=== PATIENT | female | born 1965 | race Caucasian/White ===

== ENCOUNTER 2023-02-04 14:54 | Outpatient (OUT) | payer OTHER, SELFPAY ==
[2023-02-04 15:21] LABS: Basophils Absolute Auto 0.1 10^3/uL (0.0-0.1); Basophils Percent Auto 1.3 % (0.2-2.0); Eosinophils Absolute Auto 0.2 10^3/uL (0.0-0.7); Eosinophils Percent Auto 2.5 % (0.9-7.0); Hematocrit 43.6 % (36.0-48.0); Immature Granulocytes Abs Auto 0.01 10^3/uL (0.00-0.03); Immature Granulocytes Pct Auto 0.2 % (0.0-0.5); Lymphocytes Absolute Auto 2.6 10^3/uL (1.2-3.8); Lymphocytes Percent Auto 40.6 % (20.5-60.0); Mean Corpuscular HGB Conc 32.1 g/dL (29.9-35.2); Mean Corpuscular Hemoglobin 29.7 pg (26.7-34.0); Mean Corpuscular Volume 92.6 fL (81.0-99.0); Mean Platelet Volume 9.4 fL (9.5-13.5); Monocytes Absolute Auto 0.4 10^3/uL (0.3-0.8); Monocytes Percent Auto 6.7 % (1.7-12.0); Neutrophils Absolute Auto 3.1 10^3/uL (1.4-6.5); Neutrophils Percent Auto 48.7 % (43.0-75.0); Platelet Count 267 10^3/uL (150-450); Red Blood Count 4.71 10^6/uL (4.20-5.40); Red Cell Distribution Width 13.3 % (11.0-15.0); White Blood Count 6.3 10^3/uL (4.0-11.0)
[2023-02-04 15:22] LABS: Erythrocyte Sedimentation Rate 51 mm/hr (<=30)
[2023-02-04 15:37] LABS: Alanine Aminotransferase 25 U/L (14-59); Albumin Level 3.8 g/dL (3.4-5.0); Alkaline Phosphatase 81 U/L (46-116); Aspartate Amino Transferase 16 U/L (15-37); Bilirubin Direct 0.1 mg/dL (0.0-0.2); Bilirubin Total 0.3 mg/dL (0.2-1.0); Estimated GFR (African America >60 (>=60); Estimated GFR (Non-African Ame >60 (>=60); Globulin 3.8 g/dL; Total Protein 7.6 g/dL (6.4-8.2)
== END 2023-02-04 14:55 | disposition home or self-care (01) ==
LOC: LAB 14:59
PROVIDERS: PCP Family Medicine; Visit Provider Internal Medicine Rheumatology
DX: M05.79 Rheumatoid arthritis with rheumatoid factor of multiple sites without organ or systems involvement (principal); Z79.899 Other long term (current) drug therapy
CPT/HCPCS: 36415; 80076; 82565; 85025; 85652

== ENCOUNTER 2023-05-27 10:06 | Outpatient (OUT) | payer OTHER, SELFPAY ==
--- NOTE | 2023-05-27 10:08 | MM_ITS ---
Patient Name: MADINA LERMA MR#: [id number] : 1965 Exam Date: 05/27/2023 Ordering Doctor: ARGELIA Ann kRADIOLOGY REPORT PROCEDURE: MM TOMOSYNTHESIS SCREENING BI COMPARISON: MG MAMM SCREEN 3D [place] CAD, 04/11/2021. MG MAMM SCREEN [place] W CAD, 01/18/2020. INDICATIONS: screening Calculator Name NCI Breast Cancer Risk Assessment Tool 5 Year Breast Cancer Risk 1.10% Lifetime Breast Cancer Risk 6.20% Personal Breast Cancer No Personal Ovarian Cancer No Treatments None Family Cancers None LOCATION: [facility] BREAST COMPOSITION: Scattered areas fibroglandular density. FINDINGS: DIAGNOSTIC CATEGORY 1--NEGATIVE. NO CHANGE FROM COMPARISON ASSESSMENT. Scattered benign-appearing calcifications are present. Scattered benign-appearing lymph nodes are present. RIGHT BREAST: No significant suspicious finding. LEFT BREAST: No significant suspicious finding. RECOMMENDATIONS: ROUTINE MAMMOGRAM AND CLINICAL EVALUATION IN 12 MONTHS. PLEASE NOTE: A NORMAL MAMMOGRAM DOES NOT EXCLUDE THE POSSIBILITY OF BREAST CANCER. A CLINICALLY SUSPICIOUS PALPABLE LUMP SHOULD BE BIOPSIED. Dictated by: Lobo Ayala MD on 05/27/2023 at 11:12 Approved by: Lobo Ayala MD on 05/27/2023 at 11:13
== END 2023-05-27 10:07 | disposition home or self-care (01) ==
LOC: MAMMO 10:06
PROVIDERS: PCP Family Medicine; Visit Provider Nurse Practitioner
DX: Z12.31 Encounter for screening mammogram for malignant neoplasm of breast (principal)
CPT/HCPCS: 77063; 77067

== ENCOUNTER 2024-05-31 07:44 | Outpatient (OUT) | payer OTHER, SELFPAY ==
--- NOTE | 2024-05-31 07:47 | MM_ITS ---
Patient Name: MADINA LERMA MR#: [id number] : 1965 Exam Date: 05/31/2024 Ordering Doctor: ARGELIA TAYLOR . RADIOLOGY REPORT PROCEDURE: MM TOMOSYNTHESIS SCREENING BI COMPARISON: MM TOMOSYNTHESIS SCREENING BI, 05/27/2023. MG MAMM SCREEN 3D [place] CAD, 04/11/2021. MG MAMM SCREEN [place] W CAD, 01/18/2020. MG MAMM [place] SCRN W CAD DIG, 11/02/2013. INDICATIONS: Screening Calculator Name NCI Breast Cancer Risk Assessment Tool 5 Year Breast Cancer Risk 1.20% Lifetime Breast Cancer Risk 6.00% Personal Breast Cancer No Personal Ovarian Cancer No Treatments None Family Cancers None LOCATION: [facility] BREAST COMPOSITION: There are scattered areas of fibroglandular density. FINDINGS: DIAGNOSTIC CATEGORY 0--INCOMPLETE: NEED ADDITIONAL IMAGING EVALUATION. Suspicious grouping of microcalcifications are seen involving the lower-inner quadrant of the right breast, middle depth. LEFT BREAST: No significant suspicious finding. RECOMMENDATIONS: ADDITIONAL MAMMOGRAPHIC VIEWS REQUIRED: RIGHT BREAST - magnification views. True lateral view. PLEASE NOTE: A NORMAL MAMMOGRAM DOES NOT EXCLUDE THE POSSIBILITY OF BREAST CANCER. A CLINICALLY SUSPICIOUS PALPABLE LUMP SHOULD BE BIOPSIED. Dictated by: Simone Chavez DO on 06/01/2024 at 15:36 Approved by: Simone Chavez DO on 06/01/2024 at 15:42
--- OUTSIDE RECORDS SUMMARY | 2024-05-31 07:49 | XMS_ITS | CCD ---
Author Organization [facility] Care Team Providers Care Nutrition Worker Name Role Phone MARKEL, DR FALLON Consulting Unavailable LONGORIA ., DR TONIA Velasco Primary Care Unavailable MARKEL, DR FALLON Attending Unavailable MARKEL, DR FALLON Admitting Unavailable NILL ., DR CABRERA Consulting Unavailable LONGORIA ., DR TONIA Velasco Primary Care Unavailable NILL ., DR CABRERA Attending Unavailable NILL ., DR CABRERA Admitting Unavailable ACRDONA ALISSA Consulting Unavailable GRILLIS ., DR DEBORAH Velasco Consulting Unavaila ble GRILLIS ., DR DEBORAH Velasco Attending Unavaila ble GRILLIS ., DR DEBORAH Velasco Admitting Unavaila ble LONGORIA ., DR TONIA Velasco Primary Care Unavailable GRECHNY ., TERI SANCHEZ Consulting Unavailfrank e LAY DAWKINS Consulting Unavailable SHAIKH Bubba JANG Consulting Unavailable ARTUR SYKES Consulting Unavailable NILL ., DR CABRERA Consulting Unavailable LONGORIA ., DR TONIA Velasco Primary Care Unavailable NILL ., DR CABRERA Attending Unavailable NILL ., DR CABRERA Admitting Unavailable MATTHEWAMAURI Consulting Unavailable ZORA II, LAY Consulting Unavailable MARKEL, DR FALLON Consulting Unavailable LONGORIA ., DR TONIA Velasco Primary Care Unavailable CATALINAADARobinson, DR FALLON Attending Unavailable CATALINAADARobinson, DR FALLON Admitting Unavailable GRILLIS ., DR DEBORAH Velasco Consulting Unavaila ble LONGORIA ., DR TONIA Velasco Primary Care Unavailable GRILLIS ., DR DEBORAH Velasco Attending Unavaila ble GRILLIS ., DR DEBORAH Velasco Admitting Unavaila LACHELLE Marcano Consulting Unavailable LONGORIA ., DR TONIA Velasco Consulting Unavailable LONOGRIA ., DR TONIA Velasco Primary Care Unavailable LONGORIA ., DR TONIA Velasco Attending Unavailable LONGORIA ., DR TONIA Velasco Admitting Unavailable LONGORIA ., DR TONIA Velasco Consulting Unavailable LONGORIA ., DR TONIA Velasco Primary Care Unavailable LONGORIA ., DR TONIA Velasco Attending Unavailable LONGORIA ., DR TONIA Velasco Admitting Unavailable LONGORIA ., DR TONIA Velasco Consulting Unavailable LONGORIA ., DR TONIA Velasco Primary Care Unavailable LONGORIA ., DR TONIA Velasco Attending Unavailable LONGORIA ., DR TONIA Velasco Admitting Unavailable HALADAY, DR FALLON Consulting Unavailable LONGORIA ., DR TONIA Velasco Primary Care Unavailable HALADAY, DR FALLON Attending Unavailable HALADAY, DR FALLON Admitting Unavailable Dakota Jeffery Primary Care Physician Rona Ocampo Primary Care Physician [phone] Damaris, Rona Perez Attending Unavailable Damaris, Rona L Admitting Unavailable Damaris, Rona L Attending Unavailable Damaris, Rona L Attending Unavailable Damaris, Rona L Attending Unavailable Damaris, Rona L Admitting Unavailable Damaris, Rona L Attending Unavailable Damaris, Rona L Admitting Unavailable Damaris, Rona L Attending Unavailable HALADAY, LEEANNE Parra Attending Unavailable HALADAY, LEEANNE Parra Admitting Unavailable HALADAY, LEEANNE Parra Attending Unavailable HALADAY, LEEANNE Parra Admitting Unavailable Allergies Allergy Classification Reported Allergen(s) Allergy Type Date of Onset Reaction(s) Facility (3 sources) No Known Medication Allergies; Translations: [No Known Medication Allergies] Propensity to adverse reactions (disorder) [facility] Repository Medications Current Medications Medication Drug Class(es) Dates Sig (Normalized) Sig (Original) calcium carbonate 400 mg chewable tablet (2 sources) Start: 3 take 1 tablet by mouth twice daily calcium carbonate 400 mg oral tablet, chewable = 1 tab(s), Chewed, BID, # 60 tab(s), Refills(s) 0 Start Date: 06/23/22 Status: Ordered folic acid 1 mg oral tablet (5 sources) Start: 2 take 1 tablet by mouth once daily folic acid 1 mg Tab 1 mg = 1 tab(s), Oral, Daily, Refills(s) 0 Start Date: 01/30/22 Status: Ordered hydroxychloroquine sulfate 200 mg oral tablet (5 sources) Antimalarial, Antirheumatic Agent Start: 2 take 1 tablet by mouth once daily hydroxychloroquine 200 mg Tab 200 mg = 1 tab(s), Oral, Daily, Refills(s) 0 Start Date: 01/30/22 Status: Ordered methotrexate 2.5 mg oral tablet (8 sources) Folate Analog Metabolic Inhibitor Start: methotrexate 2.5 mg Tab 2.5 mg = 1 tab(s), Oral, q7day, # 16 tab(s), Refills(s) 2, [id number], cm, 02/28/24 10:21:00 EST, Height/Length Dosing, 104.2, kg, 02/28/24 10:21:00 EST, Weight Dosing Start Date: 02/28/24 Status: Ordered Start: 01-30-2022 methotrexate 2 .5 mg Tab 15 mg = 6 tab(s), Oral, qWeek, Refills(s) 0 Start Date: 01/30/22 Status: Ordered metoprolol tartrate 37.5 mg oral tablet (4 sources) beta-Adrenergic Sally Start: 04-04-2024 take 1 tablet by mouth twice daily metoprolol tartrate 37.5 mg oral tablet 37.5 mg = 1 tab(s), Oral, BID, # 180 tab(s), Refills(s) 3, [id number] 170, cm, 02/28/24 10:21:00 EST, Height/Length Dosing, 104.2, kg, 02/28/24 10:21:00 EST, Weight Dosing Start Date: 04/04/24 Status: Ordered Start: 02-28-2024 take 1 tablet by lionel th twice daily metoprolol tartrate 37.5 mg oral tablet = 1 tab(s), Oral, BID, Refills(s) 0 Start Date: 02/28/24 Status: Ordered Start: 01-08-2023 take 1 tablet by lionel th twice daily Metoprolol tartrate 25 mg Tab 25 mg = 1 tab(s), Oral, BID, # 60 tab(s), Refills(s) 1, Pharmacy: [facility]/pharmacy #[id number], 170, cm, 01/08/23 9:23:00 EDT, Height/Length Dosing, 100.6, kg, 01/08/23 9:23:00 EDT, Weight Dosing Start Date: 01/08/23 Status: Ordered Multivitamin preparation (5 sources) Start: 06-23-2022 multivitamin R efill(s) 0 Start Date: 06/23/22 Status: Ordered predniSONE 5 mg oral tablet (1 source) Start: 02-28-2024 End: 03-13-2024 take 1 tablet by mouth once daily predniSONE 5 mg Tab 5 mg = 1 tab(s), Oral, Daily, X 14 day(s), # 14 tab(s), Refills(s) 0, Pharmacy: [facility]/pharmacy #[id number], 170, cm, 02/28/24 10:21:00 EST, Height/Length Dosing, 104.2, kg, 02/28/24 10:21:00 EST, Weight Dosing Start Date: 02/28/24 Stop Date: 03/13/24 Status: Ordered Problems Active Problems Problem Classification Problem Date Documented Date Episodic/Chronic Administrative/social admission (1 source) Dietary counseling and surveillance; Translations: [DIETARY COUNSELING AND SURVEILLANCE] Onset: 08-09-2022 Episodic Deficiency and other anemia (5 sources) Anemia 01-30-2022 Episodic Disorders of lipid metabolism (3 sources) Hyperlipidemia 02-28-2024 Chronic Essential hypertension (11 sources) Essential (primary) hypertension; Translations: [Essential hypertension] Onset: 04-02-2022 Chronic Immunizations and screening for infectious disease (1 source) Encounter for screening for other viral diseases; Translations: [ENC SCREENING FOR OTH VIRAL DZ] Onset: 07-15-2022 Episodic Inflammation; infection of eye (except that caused by tuberculosis or sexually transmitteddisease) (3 sources) Conjunctivitis of left eye 03-04-2023 Episodic Malaise and fatigue (4 sources) Fatigue 01-08-2023 Episodic Other eye disorders (3 sources) Bilateral red eyes 03-16-2023 Episodic Other female genital disorders (5 sources) Polyp of cervix 01-30-2022 Episodic Other infections; including parasitic (5 sources) History of bacterial infection 01-30-2022 Episodic Other nutritional; endocrine; and metabolic disorders (8 sources) Body mass index 30+ - obesity 02-04-2022 Chronic Other nutritional; endocrine; and metabolic disorders (2 sources) Obesity; Translations: [Other obesity due to excess calories] Onset: 02-28-2024 Chronic Other nutritional; endocrine; and metabolic disorders (1 source) Obese class II; Translations: [Body mass index (BMI) 36.0-36.9, adult] Onset: 02-28-2024 Chronic Rheumatoid arthritis and related disease (14 sources) Rheumatoid arthritis with rheumatoid factor of multiple sites without organ or systems involvement; Translations: [Rheumatoid arthritis, unspecified] Onset: 09-11-2021 Chronic Unclassified (1 source) PERSONAL HISTORY OF COVID-19; Translations: [PERSONAL HISTORY OF COVID-19] Onset: 04-02-2022 Unclassified (3 sources) CONTACT W/AND (SUSP) EXPOS COVID-19; Translations: [CONTACT W/AND (SUSP) EXPOS COVID-19] Onset: 11-26-2021 Unclassified (15 sources) Patient encounter status 02-04-2022 Unclassified (2 sources) Cancer cervix screening status 04-12-2024 Viral infection (1 source) COVID-19; Translations: [COVID-19] Onset: 11-26-2021 Past or Other Problems Problem Classification Problem Date Documented Da te Episodic/Chronic Abdominal pain (4 sources) Right lower quadrant pain; Translations: [RIGHT LOWER QUADRANT PAIN] Onset: 09-17-2021 Episodic Appendicitis and other appendiceal conditions (1 source) Acute appendicitis with perforation and localized peritonitis, without abscess; Translations: [AC APPEND W/PERF LOC PERIT W/O ABSC] Onset: 09-11-2021 Episodic Other aftercare (1 source) 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; Translations: [OTH HOME CARE NURSE CURRENT DRUG THERAPY] Onset: 04-02-2022 Episodic Other gastrointestinal disorders (4 sources) Diarrhea, unspecified; Translations: [DIARRHEA UNSPECIFIED] Onset: 10-24-2021 Episodic Other infections; including parasitic (1 source) Unspecified infectious disease; Translations: [UNSPECIFIED INFECTIOUS DISEASE] Onset: 09-19-2021 Episodic Other screening for suspected conditions (not mental disorders or infectious disease) (4 sources) Encounter for screening for malignant neoplasm of colon; Translations: [ENC SCREEN MALIG NEOPLASM COLON] Onset: 04-01-2022 Episodic Septicemia (except in labor) (1 source) Sepsis, unspecified organism; Translations: [SEPSIS UNSPECIFIED ORGANISM] Onset: 09-11-2021 Episodic Unclassified (1 source) CONTACT W/AND (SUSP) EXPOS COVID-19; Translations: [CONTACT W/AND (SUSP) EXPOS COVID-19] Onset: 11-25-2021 Results Test Name Value Interpretation Reference Range Facility CBC w/ Auto Diffon 01-22-202 5 Basophils/100 WBC (Bld) 1.3 % Normal 0.0-2.0 [facility] Comment on above: Performed By: #### 2 [id number] #### [facility] [address] [place] [address] Basophils/Leukocytes Auto (Bld) [Pure # fraction] 0.1 E9/L Normal 0.0-0.2 [facility] Comment on above: Performed By: #### 2 [id number] #### [facility] [address] [place] [address] Eosinophils (Bld) [#/Vol] 0.2 E9/L Normal 0.0-0.5 [facility] Comment on above: Performed By: #### 2 [id number] #### [facility] [address] [place] [address] Eosinophils/100 WBC (Bld) 3.4 % Normal 0.0-8.0 [facility] Comment on above: Performed By: #### 2 [id number] #### [facility] [address] [place] [address] Erythrocyte distribution width (RBC) [Ratio] 14.9 % High 10.9-14.2 [facility] Comment on above: Performed By: #### 2 [id number] #### [facility] [address] [place] [address] Hematocrit (Bld) [Volume fraction] 41.3 % Normal 34.0-46.0 [facility] Comment on above: Performed By: #### 2 [id number] #### [facility] [address] [place] [address] Hemoglobin (Bld) [Mass/Vol] 13.6 g/dL Normal 12.0-16.0 [facility] Comment on above: Performed By: #### 2 [id number] #### [facility] [address] [place] [address] Lymphocytes (Bld) [#/Vol] 2.5 E9/L Normal 1.0-4.0 [facility] Comment on above: Performed By: #### 2 [id number] #### [facility] [address] [place] [address] Lymphocytes/100 WBC (Bld) 38.1 % Normal 14.0-50.0 [facility] Comment on above: Performed By: #### 2 [id number] #### [facility] [address] [place] [address] MCH (RBC) [Entitic mass] 28.3 pg Normal 27.0-34.0 [facility] Comment on above: Performed By: #### 2 [id number] #### [facility] [address] [place] [address] MCHC (RBC) [Mass/Vol] 32.9 g/dL Normal 31.4-36.0 [facility] Comment on above: Performed By: #### 2 [id number] #### [facility] [address] [place] [address] MCV (RBC) [Entitic vol] 85.9 fL Normal 80.0-100.0 [facility] Comment on above: Performed By: #### 2 [id number] #### [facility] [address] [place] [address] Monocytes (Bld) [#/Vol] 0.4 E9/L Normal 0.2-1.0 [facility] Comment on above: Performed By: #### 2 [id number] #### [facility] [address] [place] [address] Neutrophils (Bld) [#/Vol] 3.3 E9/L Normal 2.0-7.5 [facility] Comment on above: Performed By: #### 2 [id number] #### [facility] [address] [place] [address] Neutrophils/100 WBC (Bld) 50.6 % Normal 36.0-75.0 [facility] Comment on above: Performed By: #### 2 [id number] #### [facility] [address] [place] [address] Platelet mean volume (Bld) [Entitic vol] 8.2 fL Normal 6.4-10.8 [facility] Comment on above: Performed By: #### 2 [id number] #### [facility] [address] [place] [address] Platelets (Bld) [#/Vol] 354.0 E9/L Normal 150.0-500.0 [facility] Comment on above: Performed By: #### 2 [id number] #### [facility] [address] [place] [address] RBC (Bld) [#/Vol] 4.8 E12/L Normal 4.3-5.9 [facility] Comment on above: Performed By: #### 2 [id number] #### [facility] [address] [place] [address] WBC corrected for nucl RBC Auto (Bld) [#/Vol] 6.6 E9/L Normal 4.0-11.0 [facility] Comment on above: Performed By: #### 2 [id number] #### [facility] [address] [place] [address] CHEMISTRYOrdered By: SYSTEM SYSTEM on 04-19-2024 Albumin [Mass/Vol] 3.8 g/dL Normal 3.3 - 5.0 gm/dL [facility] Albumin/Globulin [Mass ratio] 1.1 {ratio} Normal 1.1 - 2.2 [facility] ALP [Catalytic activity/Vol] 78 [iU]/d Normal 21 - 98 Int._Unit/L [facility] ALT No additional P-5'-P [Catalytic activity/Vol] 13 [iU]/d Normal 6 - 46 Int._Unit/L [facility] AST [Catalytic activity/Vol] 18 [iU]/d Normal 5 - 43 Int._Unit/L [facility] Bilirubin [Mass/Vol] 0.5 mg/dL Normal 0.0 - 1 .1 mg/dL [facility] Bilirubin.direct [Mass/Vol] 0.1 mg/dL Normal 0.0 - 0.4 mg/dL [facility] Bilirubin.indirect [Mass or moles/Vol] 0.4 mg/dL Normal 0.1 - 0.9 mg/dL [facility] Creatinine [Mass/Vol] 0.7 mg/dL Normal 0.5 - 1.3 mg/dL [facility] eGFR 99 mL/min/1.73 m2 Normal >=59mL/min /1 .73 m2 [facility] Globulin (S) [Mass/Vol] 3.5 g/dL Normal 1.4 - 4.0 gm/dL [facility] Protein [Mass/Vol] 7.3 g/dL Normal 6.0 - 7.8 gm/dL [facility] Creatinineon 04-19-2024 Creatinine [Mass/Vol] 0.7 mg/dL Normal 0.5-1.3 [facility] Comment on above: Performed By: #### 2 [id number] #### [facility] [address] [place] [address] Extra Julian 04-19-2024 WB Tube Collected Yes Invalid Interpretation Code [facility] Comment on above: Performed By: #### 1 [id number] #### [facility] [address] [place] [address] HEMATOLOGYOrdered By: SYSTEM SYSTEM on 04-19-2024 Basophils/100 WBC (Bld) 1.3 % Normal 0.0 - 2.0 % [facility]e Basophils/Leukocytes Auto (Bld) [Pure # fraction] 0.1 E9/L Normal 0.0 - 0.2 E9/L [facility] Eosinophils (Bld) [#/Vol] 0.2 E9/L Normal 0.0 - 0.5 E9/L [facility] Eosinophils/100 WBC (Bld) 3.4 % Normal 0.0 - 8.0 % [facility] Erythrocyte distribution width (RBC) [Ratio] 14.9 % High 10.9 - 14.2 % [facility] Hematocrit (Bld) [Volume fraction] 41.3 % Normal 34.0 - 46.0 % [facility] Hemoglobin (Bld) [Mass/Vol] 13.6 g/dL Normal 12.0 - 16.0 gm/dL [facility] Lymphocytes (Bld) [#/Vol] 2.5 E9/L Normal 1.0 - 4.0 E9/L [facility] Lymphocytes/100 WBC (Bld) 38.1 % Normal 14.0 - 50.0 % [facility] MCH (RBC) [Entitic mass] 28.3 pg Normal 27.0 - 34.0 pg [facility] MCHC (RBC) [Mass/Vol] 32.9 g/dL Normal 31.4 - 36.0 gm/dL [facility] MCV (RBC) [Entitic vol] 85.9 fL Normal 80.0 - 100.0 fL [facility] Monocytes (Bld) [#/Vol] 0.4 E9/L Normal 0.2 - 1.0 E9/L [facility] Monocytes/100 WBC (Bld) 6.6 % Normal 4.0 - 14.0 % [facility] Neutrophils (Bld) [#/Vol] 3.3 E9/L Normal 2.0 - 7.5 E9/L [facility] Neutrophils/100 WBC (Bld) 50.6 % Normal 36.0 - 75.0 % [facility] Platelet mean volume (Bld) [Entitic vol] 8.2 fL Normal 6.4 - 10.8 fL [facility] Platelets (Bld) [#/Vol] 354.0 E9/L Normal 150.0 - 500.0 E9/L [facility] RBC (Bld) [#/Vol] 4.8 E12/L Normal 4.3 - 5.9 E12/L [facility] WBC corrected for nucl RBC Auto (Bld) [#/Vol] 6.6 E9/L Normal 4.0 - 11.0 E9/L [facility] HEMATOLOGYOrdered By: Dami Franklin on 04-19-2024 ESR (Bld) [Velocity] 25 mm/h Normal 0 - 34 mm/hr [facility] HemeAutoSS Hep Func Panelon 04-19-2024 Albumin [Mass/Vol] 3.8 g/dL Normal 3.3-5.0 [facility] Comment on above: Performed By: #### 2 [id number] #### [facility] [address] [place] [address] Albumin/Globulin (S) [Mass conc ratio] 1.1 Normal 1.1-2.2 [facility] Comment on above: Performed By: #### 2 [id number] #### [facility] [address] [place] [address] ALP [Catalytic activity/Vol] 78 Int._Unit/L Normal 21-98 [facility] Comment on above: Performed By: #### 2 [id number] #### [facility] [address] [place] [address] ALT No additional P-5'-P [Catalytic activity/Vol] 13 Int._Unit/L Normal 6-46 [facility] Comment on above: Performed By: #### 2 [id number] #### [facility] [address] [place] [address] AST [Catalytic activity/Vol] 18 Int._Unit/L Normal 5-43 [facility] Comment on above: Performed By: #### 2 [id number] #### [facility] [address] [place] [address] Bilirubin [Mass/Vol] 0.5 mg/dL Normal 0.0-1.1 [facility] Comment on above: Performed By: #### 2 [id number] #### [facility] [address] [place] [address] Bilirubin.direct [Mass/Vol] 0.1 mg/dL Normal 0.0-0.4 [facility] Comment on above: Performed By: #### 2 [id number] #### [facility] [address] [place] [address] Bilirubin.indirect [Mass or moles/Vol] 0.4 mg/dL Normal 0.1-0.9 [facility] Comment on above: Performed By: #### 2 [id number] #### [facility] [address] [place] [address] Globulin (S) [Mass/Vol] 3.5 g/dL Normal 1.4-4.0 [facility] Comment on above: Performed By: #### 2 [id number] #### [facility] [address] [place] [address] Protein [Mass/Vol] 7.3 g/dL Normal 6.0-7.8 [facility] Comment on above: Performed By: #### 2 [id number] #### [facility] [address] [place] [address] Sed Rate Automatedon 025 ESR (Bld) [Velocity] 25 mm/h Normal 0-34 [facility] Comment on above: Performed By: #### 1 [id number] #### [facility] [address] [place] [address] eGFRon 04-19-2024 eGFR 99 mL/min/1.73 m2 Normal >=59 [facility] Comment on above: Performed By: #### 1 [id number] #### [facility] [address] [place] [address] PAP [id number] 04-18-2024 Cytology report Cyto stain Doc (Cvx/Vag) Note Invalid Interpretation Code [facility] Comment on above: Result Comment: TEST S RESULT FLAG UNITS REF RANGE LAB Clinician Provided Cytology Information Source.............Endocervix No. of containers..01 ThinPrep Vial DIAGNOSIS: 01 NEGATIVE FOR INTRAEPITHELIAL LESION OR MALIGNANCY. Specimen adequacy: 01 Satisfactory for evaluation. Endocervical and/or squamous metaplastic cells (endocervical component) are present. Performed by: Meg Ghosh Beef Specialist (ASCP) . 01 Note: Note 01 The Pap smear is a screening test designed to aid in the detection of premalignant and malignant conditions of the uterine cervix. It is not a diagnostic procedure and should not be used as the sole means of detecting cervical cancer. Both false-positive and false-negative reports do occur. Test Methodology: Note 01 This liquid based ThinPrep(R) pap test was screened with the use of an image guided system. HPV Genotype Reflex Note 01 Criteria not met, HPV Genotype not performed. FLAG LEGEND: L-Low Normal,H-High Normal,LL-Alert Low,HH-Alert High <-Panic Low,>-Panic High,A-Abnormal,AA-Critical Abnormal Performed at: [address] [id number] Brandy Gardner MD, Performed By: #### 1 [id number] #### [facility] [address] [place] [address] HPV 16+18+31+33+35+39+45+ 51+52+56+58+59+66+68 DNA Probe+sig amp Ql (Cvx) Negative Invalid Interpretation Code Negative [facility] Comment on above: Result Comment: This nucleic acid amplification test detects fourteen high-risk HPV types (16,18,31,33,35,39,45,51,52,56,58,59,66,68) without differentiation. Performed at: [address] [id number] MD Jj Nava Performed at: [address] [id number] MD Jj Nava Performed By: #### 1 [id number] #### [facility] [address] [place] [address] Ambulatory Visit Summaryon 0 04-12-2024 Ambulatory Visit Summary Ambulatory Visit Summary CYN LERMA :1965 Visit Date:04/12/2024 Ambulatory Visit Instructions Your Care Team Attending Physician - Rona Winkler Primary Care Physician - Rona Winkler This Is Your Medications List folic acid (folic acid 1 mg Tab) hydroxychloroquine (hydroxychloroquine 200 mg Tab) methotrexate (methotrexate 2.5 mg Tab) methotrexate (methotrexate 2.5 mg Tab) metoprolol (metoprolol tartrate 37.5 mg oral tablet) multivitamin Procedures Performed Colonoscopy (02/04/2022), Appendectomy, section, Drainage. Discharge Vitals Heart Rate (Peripheral) 78 Respiratory Rate 16 Blood Pressure 138/86 Height 170 cm Height 67 in Weight 104.75 kg Weight 230.934 lb BMI 36.25 Medications What How Much When Instructions Unchanged folic acid (folic acid 1 mg Tab) 1 Tablets By Mouth Every day Unchanged hydroxychloroquine (hydroxychloroquine 200 mg Tab) 1 Tablets By Mouth Every day Unchanged methotrexate (methotrexate 2.5 mg Tab) 6 Tablets By Mouth Every week Unchanged methotrexate (methotrexate 2.5 mg Tab) 1 Tablets By Mouth Every 7 days Unchanged metoprolol (metoprolol tartrate 37.5 mg oral tablet) 1 Tablets By Mouth 2 times a day Unchanged multivitamin Allergies No Known Allergies Problems Ongoing - Any problem that you are currently receiving treatment for. Anemia Annual wellness visit BMI 32.0-32.9,adult BMI 36.0-36.9,adult Cervical polyp Fatigue History of Clostridium difficile infection HTN (hypertension) Hyperlipemia Hypertension Left conjunctivitis Redness of both eyes Rheumatoid arthritis Screening for hyperlipidemia Screening for malignant neoplasm of colon Patient Survey You may receive a survey via text or e-mail asking about your office visit. Please share your experience with us by completing your survey. We appreciate your feedback and thank you for choosing us for your care. Lex Templeton [facility] Family Medicine Office/Clini c Noteon 04-12-2024 Family Medicine Office/Clinic Note Family Medicine Office/Clinic Note HPI Staff Cyn is a 59 year old female presenting for well woman Woman check up: Last pap: 2 years Last Bob: 03/2023 normal Results of lap pap: normal Where was it done: [facility] hx: # of pregnancies.3.. abortions... live births.3.. living children... menstrual cycle (normal,heavy,ect): n/a History of STD: no Do you want tested for STD today: no Vaginal discharge, odor, itching: no Self breast exam at home? yes Hx of breast, cervical or uterine cancer in the family: no History of Present Illness pt presents today for well woman visit Review of Systems PHQ Score Initial Depression Screen Score: 0 SCORE Physical Exam Vitals & Measurements HR: 78(Peripheral) RR: 16 BP: 138/86 SpO2: 95% HT: 67 in HT: 170 cm WT: 104.75 kg WT: 230.934 lb BMI: 36.25 General: Well developed, well nourished, in no acute distress Neck: Neck supple. No masses or palpable cervical nodes. Trachea midline. Thyroid without nodules, masses, tenderness, or enlargement Breast: No mass, nodule, discharge, or erythema bilaterally, and no axillary lymphadenopathy Lungs: Normal respiratory effort and clear to auscultation Cardio: Regular rate and rhythm, normal S1 and S2, no murmur, no rub Abdomen: Soft, non-distended, non-tender, normal bowel sounds x4 Gyno: normal external genitalia. Urethra no discharge. Vagina normal without lesions, no vaginal discharge. Cervix normal, without lesions. Uterus normal. No adnexal masses. Pap obtained cervical polyp noted during exam Neurologic: Grossly normal Skin: [place], moist, no tenting Lymph Nodes: No cervical adenopathy, nodes normal Mental Status: Alert and oriented x3. Normal mood and affect Assessment/Plan 1. Well woman exam (Z01.419: Encounter for gynecological examination (general) (routine) without abnormal findings) well woman visit. pap obtained. BSE discussed. mammogram ordered for end april. denies needs at this time. labs reviewed. RTC as needed Ordered: Est Preventative 40 to 64 years 83855 PAP 170783 w/ HPV and Genotype rflx 2. Cervical polyp (N84.1: Polyp of cervix uteri) polyp noted on exam Ordered: Est Preventative 40 to 64 years 74473 PAP 053144 w/ HPV and Genotype rflx 3. Cervical cancer screening (Z12.4: Encounter for screening for malignant neoplasm of cervix) pap obtained. Ordered: Est Preventative 40 to 64 years 03820 PAP [id number] w/ HPV and Genotype rflx 4. Breast cancer screening (Z12.39: Encounter for other screening for malignant neoplasm of breast) mammogram order provided Ordered: Est Preventative 40 to 64 years [address]12 PAP 860962 w/ HPV and Genotype rflx 5. BMI 36.0-36.9,adult (Z68.36: Body mass index [BMI] 36.0-36.9, adult) BMI education given Ordered: Est Preventative 40 to 64 years 87086 PAP w/ HPV and Genotype rflx Follow-up No qualifying data available Problem List/Past Medical History Ongoing Anemia Annual wellness visit BMI 32.0-32.9,adult BMI 36.0-36.9,adult Breast cancer screening Cervical cancer screening Cervical polyp Fatigue History of Clostridium difficile infection HTN (hypertension) Hyperlipemia Hypertension Left conjunctivitis Redness of both eyes Rheumatoid arthritis Screening for hyperlipidemia Screening for malignant neoplasm of colon Well woman exam Historical No qualifying data Procedure/Surgical History Colonoscopy (02/04/2022), Appendectomy, section, Drainage. Medications folic acid 1 mg Tab, 1 mg= 1 tab(s), Oral, Daily, Not taking: pt Rx has to get seen my the doctor refills hydroxychloroquine 200 mg Tab, 200 mg= 1 tab(s), Oral, Daily, Not taking: pt Rx has to get seen my the doctor refills methotrexate 2.5 mg Tab, 15 mg= 6 tab(s), Oral, qWeek, Not taking: pt Rx has to get seen my the doctor refills methotrexate 2.5 mg Tab, 2.5 mg= 1 tab(s), Oral, q7day, 2 refills, Not taking: pt Rx has to get seen my the doctor refills metoprolol tartrate 37.5 mg oral tablet, 37.5 mg= 1 tab(s), Oral, BID, 3 refills multivitamin Allergies No Known Allergies Social History Alcohol - Low Risk, 06/23/2022 Current. 1-2 times per year., 04/12/2024 Substance Abuse - Denies Substance Abuse, 02/04/2022 Never., 02/27/2024 Tobacco - Denies Tobacco Use, 06/23/2022 Never (less than 100 in lifetime) Tobacco Use:. Never Smokeless Tobacco Use:. Household tobacco concerns: No. Yes, 02/28/2024 Family History Family history is negative Immunizations Vaccine Date Status Comments influenza virus vaccine, inactivated - Not Given Patient Refuses SARS-CoV-2 (COVID-19) mRNA BNT-162b2 vax 04/25/2021 Recorded SARS-CoV-2 (COVID-19) mRNA BNT-162b2 vax 04/02/2021 Recorded Normal [facility] Comment on above: Result Comment: Elec tronically Signed By: Rona Winkler\.br\Date and Time Signed: 04/12/24 15:14 EST PAP [id number] 04-12-2024 Gynecological Body Site ENDOCERVIX Normal [facility] Comment on above: Performed By: #### 1 [id number] #### [facility] [address] [place] [address] Ambulatory Visit Summaryon 1 04-30-2023 Ambulatory Visit Summary Ambulatory Visit Summary CYN LERMA :1965 Visit Date:02/28/2024 Ambulatory Visit Instructions Your Diagnosis Annual wellness visit Hypertension Hyperlipemia Nonsmoker Class 1 obesity due to excess calories in adult, Other obesity due to excess calories BMI 36.0-36.9,adult Your Care Team Attending Physician - Rona Winkler Primary Care Physician - Rona Winkler This Is Your Medications List folic acid (folic acid 1 mg Tab) hydroxychloroquine (hydroxychloroquine 200 mg Tab) methotrexate (methotrexate 2.5 mg Tab) methotrexate (methotrexate 2.5 mg Tab) metoprolol (metoprolol tartrate 37.5 mg oral tablet) multivitamin predniSONE (predniSONE 5 mg Tab) Procedures Performed Colonoscopy (02/04/2022), Appendectomy, section, Drainage. Discharge Vitals Temperature (Tympanic) 36.8 ???C Heart Rate (Peripheral) 61 Respiratory Rate 18 Blood Pressure 152/90 Height 170 cm Height 67 in Weight 104.2 kg Weight 229.721 lb BMI 36.06 What to do next Scheduled Follow-Up Appointments Wednesday 2:40 PM EST With: Rona Winkler Where: [place] [id number]- Medications What How Much When Instructions Unchanged folic acid (folic acid 1 mg Tab) 1 Tablets By Mouth Every day Unchanged hydroxychloroquine (hydroxychloroquine 200 mg Tab) 1 Tablets By Mouth Every day Unchanged methotrexate (methotrexate 2.5 mg Tab) 6 Tablets By Mouth Every week Unchanged methotrexate (methotrexate 2.5 mg Tab) 1 Tablets By Mouth Every 7 days Pickup at [facility]/pharmacy #[id number] Unchanged metoprolol (metoprolol tartrate 37.5 mg oral tablet) 1 Tablets By Mouth 2 times a day Unchanged multivitamin Unchanged predniSONE (predniSONE 5 mg Tab) 1 Tablets By Mouth Every day Duration: 14 Days Pickup at [facility]/pharmacy #[id number] Pharmacy Information [facility]/pharmacy #[id number]: [address], [place] [id number] [phone] Allergies No Known Allergies Problems Ongoing - Any problem that you are currently receiving treatment for. Anemia Annual wellness visit BMI 32.0-32.9,adult BMI 36.0-36.9,adult Cervical polyp Fatigue History of Clostridium difficile infection HTN (hypertension) Hyperlipemia Hypertension Left conjunctivitis Redness of both eyes Rheumatoid arthritis Screening for hyperlipidemia Screening for malignant neoplasm of colon Patient Survey You may receive a survey via text or e-mail asking about your office visit. Please share your experience with us by completing your survey. We appreciate your feedback and thank you for choosing us for your care. Normal [facility] CBC w/ Auto Diffon 4 Basophils/100 WBC (Bld) 1.2 % Normal 0.0-2.0 [facility] Comment on above: Performed By: #### 2 [id number] #### [facility] [address] [place] [address] Basophils/Leukocytes Auto (Bld) [Pure # fraction] 0.1 E9/L Normal 0.0-0.2 [facility] Comment on above: Performed By: #### 2 [id number] #### [facility] [address] [place] [address] Eosinophils (Bld) [#/Vol] 0.1 E9/L Normal 0.0-0.5 [facility] Comment on above: Performed By: #### 2 [id number] #### [facility] [address] [place] [address] Eosinophils/100 WBC (Bld) 1.2 % Normal 0.0-8.0 [facility] Comment on above: Performed By: #### 2 [id number] #### [facility] [address] [place] [address] Erythrocyte distribution width (RBC) [Ratio] 15.1 % High 10.9-14.2 [facility] Comment on above: Performed By: #### 2 [id number] #### [facility] [address] [place] [address] Hematocrit (Bld) [Volume fraction] 44.7 % Normal 34.0-46.0 [facility] Comment on above: Performed By: #### 2 [id number] #### [facility] [address] [place] [address] Hemoglobin (Bld) [Mass/Vol] 15.0 g/dL Normal 12.0-16.0 [facility] Comment on above: Performed By: #### 2 [id number] #### [facility] [address] [place] [address] Lymphocytes (Bld) [#/Vol] 4.0 E9/L Normal 1.0-4.0 [facility] Comment on above: Performed By: #### 2 [id number] #### [facility] [address] [place] [address] Lymphocytes/100 WBC (Bld) 37.1 % Normal 14.0-50.0 [facility] Comment on above: Performed By: #### 2 [id number] #### [facility] [address] [place] [address] MCH (RBC) [Entitic mass] 29.3 pg Normal 27.0-34.0 [facility] Comment on above: Performed By: #### 2 [id number] #### [facility] [address] [place] [address] MCHC (RBC) [Mass/Vol] 33.5 g/dL Normal 31.4-36.0 [facility] Comment on above: Performed By: #### 2 [id number] #### [facility] [address] [place] [address] MCV (RBC) [Entitic vol] 87.3 fL Normal 80.0-100.0 [facility] Comment on above: Performed By: #### 2 [id number] #### [facility] [address] [place] [address] Monocytes (Bld) [#/Vol] 0.7 E9/L Normal 0.2-1.0 [facility] Comment on above: Performed By: #### 2 [id number] #### [facility] [address] [place] [address] Neutrophils (Bld) [#/Vol] 5.8 E9/L Normal 2.0-7.5 [facility] Comment on above: Performed By: #### 2 [id number] #### [facility] [address] [place] [address] Neutrophils/100 WBC (Bld) 54.1 % Normal 36.0-75.0 [facility] Comment on above: Performed By: #### 2 [id number] #### [facility] [address] [place] [address] Platelet mean volume (Bld) [Entitic vol] 8.5 fL Normal 6.4-10.8 [facility] Comment on above: Performed By: #### 2 [id number] #### [facility] [address] [place] [address] Platelets (Bld) [#/Vol] 289.0 E9/L Normal 150.0-500.0 [facility] Comment on above: Performed By: #### 2 [id number] #### [facility] [address] [place] [address] RBC (Bld) [#/Vol] 5.1 E12/L Normal 4.3-5.9 [facility] Comment on above: Performed By: #### 2 [id number] #### [facility] [address] [place] [address] WBC corrected for nucl RBC Auto (Bld) [#/Vol] 10.8 E9/L Normal 4.0-11.0 [facility] Comment on above: Result Comment: Sheeba pheral smear review performed. Performed By: #### 2 [id number] #### [facility] [address] [place] [address] CHEMISTRYOrdered By: SYSTEM SYSTEM on 02-28-2024 Albumin [Mass/Vol] 4.1 g/dL Normal 3.3 - 5.0 gm/dL [facility] Albumin/Globulin [Mass ratio] 1.3 {ratio} Normal 1.1 - 2.2 [facility] ALP [Catalytic activity/Vol] 72 [iU]/d Normal 21 - 98 Int._Unit/L [facility] ALT No additional P-5'-P [Catalytic activity/Vol] 15 [iU]/d Normal 6 - 46 Int._Unit/L [facility] Anion gap [Moles/Vol] 12 mmol/L Normal 6 - 16 mEq/L R emisol Chem AST [Catalytic activity/Vol] 17 [iU]/d Normal 5 - 43 Int._Unit/L [facility] Bilirubin [Mass/Vol] 0.7 mg/dL Normal 0.0 - 1 .1 mg/dL [facility] Calcium [Mass/Vol] 10.1 mg/dL Normal 8.9 - 11. 1 mg/dL [facility] Chloride [Moles/Vol] 102 mmol/L Normal 101 - 1 11 mmol/L [facility] Cholesterol [Mass/Vol] 174 mg/dL Normal 120 - 200 mg/dL [facility] Cholesterol in HDL [Mass/Vol] 44 mg/dL Invalid Interpretation Code [facility] Comment on above: Result Comment: '>= 60 LOW RISK' '<= 40 HIGH RISK' Cholesterol in LDL [Mass/Vol] 118 mg/dL Normal <=129mg/dL [facility] Cholesterol in VLDL [Mass/Vol] 28 mg/dL Normal 7 - 40 mg/dL [facility] CO2 [Moles/Vol] 27 mmol/L Normal 21 - 31 mmol/L [facility] Creatinine [Mass/Vol] 0.8 mg/dL Normal 0.5 - 1.3 mg/dL [facility] eGFR 84 mL/min/1.73 m2 Normal >=59mL/min /1 .73 m2 [facility] Globulin (S) [Mass/Vol] 3.1 g/dL Normal 1.4 - 4.0 gm/dL [facility] Glucose [Mass/Vol] 94 mg/dL Normal 55 - 199 mg/dL [facility] Potassium [Moles/Vol] 3.9 mmol/L Normal 3.5 - 5.3 mmol/L [facility] Protein [Mass/Vol] 7.2 g/dL Normal 6.0 - 7.8 gm/dL [facility] Sodium [Moles/Vol] 137 mmol/L Normal 135 - 145 mmol/L [facility] Triglyceride [Mass/Vol] 140 mg/dL Normal <=149mg/dL [facility] TSH Qn 2.05 m[IU]/L Normal 0.34 - 5.60 mcIU/mL [facility] Urea nitrogen [Mass/Vol] 15 mg/dL Normal 5 - 21 mg/dL [facility] Urea nitrogen/Creatinine [Mass ratio] 19 mg/mg Normal 10 - 20 [facility] CMPon 02-28-2024 Albumin [Mass/Vol] 4.1 g/dL Normal 3.3-5.0 [facility] Comment on above: Performed By: #### 2 [id number] #### [facility] [address] [place] [address] Albumin/Globulin (S) [Mass conc ratio] 1.3 Normal 1.1-2.2 [facility] Comment on above: Performed By: #### 2 [id number] #### [facility] [address] [place] [address] ALP [Catalytic activity/Vol] 72 Int._Unit/L Normal -98 [facility] Comment on above: Performed By: #### 2 [id number] #### [facility] [address] [place] [address] ALT No additional P-5'-P [Catalytic activity/Vol] 15 Int._Unit/L Normal 6-46 [facility] Comment on above: Performed By: #### 2 [id number] #### [facility] [address] [place] [address] Anion gap [Moles/Vol] 12 mmol/L Normal 6-16 [facility] Comment on above: Performed By: #### 2 [id number] #### [facility] [address] [place] [address] AST [Catalytic activity/Vol] 17 Int._Unit/L Normal 5-43 [facility] Comment on above: Performed By: #### 2 105454 #### [facility] [address] [place] [address] Bilirubin [Mass/Vol] 0.7 mg/dL Normal 0.0-1.1 [facility] Comment on above: Performed By: #### 2 [id number] #### [facility] [address] [place] [address] Calcium [Mass/Vol] 10.1 mg/dL Normal 8.9-11.1 [facility] Comment on above: Performed By: #### 2 707675 #### [facility] [address] [place] [address] Chloride [Moles/Vol] 102 mmol/L Normal 101-111 [facility] Comment on above: Performed By: #### 2 957301 #### [facility] [address] [place] [address] CO2 [Moles/Vol] 27 mmol/L Normal 21-31 [facility] Comment on above: Performed By: #### 2 971530 #### [facility] [address] [place] [address] Creatinine [Mass/Vol] 0.8 mg/dL Normal 0.5-1.3 [facility] Comment on above: Performed By: #### 2 098268 #### [facility] [address] [place] [address] Globulin (S) [Mass/Vol] 3.1 g/dL Normal 1.4-4.0 [facility] Comment on above: Performed By: #### 2 118638 #### [facility] [address] [place] [address] Glucose [Mass/Vol] 94 mg/dL Normal 55-199 [facility] Comment on above: Performed By: #### 2 701609 #### [facility] [address] [place] [address] Potassium [Moles/Vol] 3.9 mmol/L Normal 3.5-5.3 [facility] Comment on above: Performed By: #### 2 517554 #### [facility] [address] [place] [address] Protein [Mass/Vol] 7.2 g/dL Normal 6.0-7.8 [facility] Comment on above: Performed By: #### 2 [id number] #### [facility] [address] [place] [address] Sodium [Moles/Vol] 137 mmol/L Normal 135-145 [facility] Comment on above: Performed By: #### 2 [id number] #### [facility] [address] [place] [address] Urea nitrogen [Mass/Vol] 15 mg/dL Normal 5-21 [facility] Comment on above: Performed By: #### 2 [id number] #### [facility] [address] [place] [address] Urea nitrogen/Creatinine [Mass ratio] 19 No Units Normal 10-20 [facility] Comment on above: Performed By: #### 2 [id number] #### [facility] [address] [place] [address] Family Medicine Office/Clini c Noteon 02-28-2024 Family Medicine Office/Clinic Note Family Medicine Office/Clinic Note Chief Complaint Annual Wellness HPI Staff Cyn is a 58 year old female presenting with annual wellness Health Maintenance: Colonoscopy: 04/01/22 Mammo: 04/2023 PAP: due Last Labs: 01-07-23 History of Present Illness pt presents today for annual wellness visit Review of Systems PHQ Score Initial Depression Screen Score: 0 SCORE Physical Exam Vitals & Measurements T: 36.8 ???C(Tympanic) HR: 61(Peripheral) RR: 18 BP: 152/90 SpO2: 96% HT: 67 in HT: 170 cm WT: 104.2 kg WT: 229.721 lb BMI: 36.06 General: alert, no acute distress ENMT: oral mucosa moist, no pharyngeal erythema or exudate Cardiovascular: regular rate and rhythm, normal peripheral perfusion Respiratory: Lungs CTA, respirations non labored Extremities: no deformity, no trauma Neurological: oriented x 4, LOC appropriate for age, CN II-XII intact, motor strength equal & normal bilaterally, speech normal Assessment/Plan 1. Annual wellness visit (Z00.00: Encounter for general adult medical examination without abnormal findings) pt presents today for wellness visit. pt denies needs other than pain from RA. has been off of meds for a few months. Ordered: CBC w/ Auto Diff Comprehensive Metabolic Panel Est Preventative 40 to 64 years Lab Specimen Collect [address] Lipid Panel Thyroid Stimulating Hormone 2. Hypertension (I10: Essential (primary) hypertension) BP elevated. pt will monitor at home. if above 140/90 will increase metoprolol dose Ordered: CBC w/ Auto Diff Comprehensive Metabolic Panel Est Preventative 40 to 64 years Lab Specimen Collect 26460 Lipid Panel Thyroid Stimulating Hormone 3. Hyperlipemia (E78.5: Hyperlipidemia, unspecified) lipid drawn in office today Ordered: CBC w/ Auto Diff Comprehensive Metabolic Panel Est Preventative 40 to 64 years [address] Lab Specimen Collect 43708 Lipid Panel Thyroid Stimulating Hormone 4. Nonsmoker (Z78.9: Other specified health status) continue not smoking Ordered: erythromycin ophthalmic, 1/4 inch ribbon, Eye-Left, As Directed, 3.5 gm, Refill(s) 0, [id number], 170, cm, 03/04/23 12:58:00 EST, Height/Length Dosing, 103.7, kg, 03/04/23 12:58:00 EST, Weight Dosing metoprolol, 37.5 mg = 1 tab(s), Oral, BID, X 90 day(s), # 180 tab(s), Refills(s) 3, Pharmacy: [id number], 170, cm, 03/04/23 12:58:00 EST, Height/Length Dosing, 103.7, kg, 03/04/23 12:58:00 EST, Weight Dosing CBC w/ Auto Diff Comprehensive Metabolic Panel Est Preventative 40 to 64 years [address] Lipid Panel Thyroid Stimulating Hormone 5. Class 1 obesity due to excess calories in adult, (E66.09: Other obesity due to excess calories)Other obesity due to excess calories see above Ordered: Est Preventative 40 to 64 years 6. BMI 36.0-36.9,adult (Z68.36: Body mass index [BMI] 36.0-36.9, adult) bmi educatoin Ordered: Est Preventative 40 to 64 years [address] 7. Rheumatoid arthritis (M06.9: Rheumatoid arthritis, unspecified) pt has not had meds for a few months. will send refill Ordered: Est Preventative 40 to 64 years [address] Orders: methotrexate, 2.5 mg = 1 tab(s), Oral, q7day, # 16 tab(s), Refills(s) 2, [id number] 170, cm, 02/28/24 10:21:00 EST, Height/Length Dosing, 104.2, kg, 02/28/24 10:21:00 EST, Weight Dosing methotrexate, 2.5 mg = 1 tab(s), Oral, q7day, # 84 tab(s), Refills(s) 0, [id number], 170, cm, 02/28/24 10:21:00 EST, Height/Length Dosing, 104.2, kg, 02/28/24 10:21:00 EST, Weight Dosing predniSONE, 5 mg = 1 tab(s), Oral, Daily, X 14 day(s), # 14 tab(s), Refills(s) 0, [id number], 170, cm, 02/28/24 10:21:00 EST, Height/Length Dosing, 104.2, kg, 02/28/24 10:21:00 EST, Weight Dosing Follow-up No qualifying data available Problem List/Past Medical History Ongoing Anemia Annual wellness visit BMI 32.0-32.9,adult BMI 36.0-36.9,adult Cervical polyp Fatigue History of Clostridium difficile infection HTN (hypertension) Hyperlipemia Hypertension Left conjunctivitis Redness of both eyes Rheumatoid arthritis Screening for hyperlipidemia Screening for malignant neoplasm of colon Historical No qualifying data Procedure/Surgical History Colonoscopy (02/04/2022), Appendectomy, section, Drainage. Medications folic acid 1 mg Tab, 1 mg= 1 tab(s), Oral, Daily, Not taking: Hasn't seen RA phys in some time hydroxychloroquine 200 mg Tab, 200 mg= 1 tab(s), Oral, Daily, Not taking: Hasn't seen RA phys in some time methotrexate 2.5 mg Tab, 15 mg= 6 tab(s), Oral, qWeek, Not taking: Hasn't seen RA phys in some time methotrexate 2.5 mg Tab, 2.5 mg= 1 tab(s), Oral, q7day, 2 refills metoprolol tartrate 37.5 mg oral tablet, 1 tab(s), Oral, BID multivitamin predniSONE 5 mg Tab, 5 mg= 1 tab(s), Oral, Daily Allergies No Known Allergies Social History Alcohol - Low Risk, 06/23/2022 Current. 1-2 times per year., 02/27/2024 Substa (more content not included)... Normal [facility] Comment on above: Result Comment: Elec tronically Signed By: Rona Winkler\.br\Date and Time Signed: 02/28/24 12:24 EST HEMATOLOGYOrdered By: SYSTEM SYSTEM on 02-28-2024 Basophils/100 WBC (Bld) 1.2 % Normal 0.0 - 2.0 % [facility] Basophils/Leukocytes Auto (Bld) [Pure # fraction] 0.1 E9/L Normal 0.0 - 0.2 E9/L [facility] Eosinophils (Bld) [#/Vol] 0.1 E9/L Normal 0.0 - 0.5 E9/L [facility] Eosinophils/100 WBC (Bld) 1.2 % Normal 0.0 - 8.0 % [facility] Erythrocyte distribution width (RBC) [Ratio] 15.1 % High 10.9 - 14.2 % [facility] Hematocrit (Bld) [Volume fraction] 44.7 % Normal 34.0 - 46.0 % [facility] Hemoglobin (Bld) [Mass/Vol] 15.0 g/dL Normal 12.0 - 16.0 gm/dL [facility] Lymphocytes (Bld) [#/Vol] 4.0 E9/L Normal 1.0 - 4.0 E9/L [facility] Lymphocytes/100 WBC (Bld) 37.1 % Normal 14.0 - 50.0 % [facility] MCH (RBC) [Entitic mass] 29.3 pg Normal 27.0 - 34.0 pg [facility] MCHC (RBC) [Mass/Vol] 33.5 g/dL Normal 31.4 - 36.0 gm/dL [facility] MCV (RBC) [Entitic vol] 87.3 fL Normal 80.0 - 100.0 fL [facility] Monocytes (Bld) [#/Vol] 0.7 E9/L Normal 0.2 - 1.0 E9/L [facility] Monocytes/100 WBC (Bld) 6.4 % Normal 4.0 - 14.0 % [facility] Neutrophils (Bld) [#/Vol] 5.8 E9/L Normal 2.0 - 7.5 E9/L [facility] Neutrophils/100 WBC (Bld) 54.1 % Normal 36.0 - 75.0 % [facility] Platelet mean volume (Bld) [Entitic vol] 8.5 fL Normal 6.4 - 10.8 fL [facility] Platelets (Bld) [#/Vol] 289.0 E9/L Normal 150.0 - 500.0 E9/L [facility] RBC (Bld) [#/Vol] 5.1 E12/L Normal 4.3 - 5.9 E12/L [facility] WBC corrected for nucl RBC Auto (Bld) [#/Vol] 10.8 E9/L Normal 4.0 - 11.0 E9/L [facility] Comment on above: Result Comment: Sheeba pheral smear review performed. Lipid Panelon 02-28-2024 Cholesterol [Mass/Vol] 174 mg/dL Normal 120-200 [facility] Comment on above: Performed By: #### 2 [id number] #### [facility] [address] [place] [address] Cholesterol in HDL [Mass/Vol] 44 mg/dL Invalid Interpretation Code [facility] Comment on above: Result Comment: '>= 60 LOW RISK' '<= 40 HIGH RISK' Performed By: #### 2 [id number] #### [facility] [address] [place] [address] Cholesterol in LDL [Mass/Vol] 118 mg/dL Normal <=129 [facility] Comment on above: Performed By: #### 2 [id number] #### [facility] [address] [place] [address] Cholesterol in VLDL [Mass/Vol] 28 mg/dL Normal 7-40 [facility] Comment on above: Performed By: #### 2 [id number] #### [facility] [address] [place] [address] Triglyceride [Mass/Vol] 140 mg/dL Normal <=149 [facility] Comment on above: Performed By: #### 2 [id number] #### [facility] [address] [place] [address] TSHon 02-28-2024 TSH Qn 2.05 m[IU]/L Normal 0.34-5.60 [facility] Comment on above: Performed By: #### 2 [id number] #### [facility] [address] [place] [address] eGFRon 02-28-2024 eGFR 84 mL/min/1.73 m2 Normal >=59 [facility] Comment on above: Performed By: #### 1 [id number] #### [facility] [address] [place] [address] CHEMISTRYOrdered By: SYSTEM SYSTEM on 01-08-2023 Cholesterol [Mass/Vol] 232 mg/dL High 120 - 200 mg/dL [facility] Cholesterol in HDL [Mass/Vol] 26 mg/dL Invalid Interpretation Code [facility] Comment on above: Interpretive Data: H DL > or equal to 60 mg/dL: Low cardiovascular risk HDL < 40 mg/dL : High cardiovascular risk Cholesterol in LDL [Mass/Vol] 171 mg/dL High <=129mg/dL [facility] Cholesterol in VLDL [Mass/Vol] 23 mg/dL Normal 7 - 40 mg/dL [facility] Triglyceride [Mass/Vol] 113 mg/dL Normal <=149mg/dL [facility] TSH Qn 1.46 m[IU]/L Normal 0.34 - 5.60 mcIU/mL [facility] CHEMISTRYOrdered By: SYSTEM SYSTEM on 01-06-2023 Troponin I.cardiac [Mass/Vol] 3.10 pg/mL Low 10.10 - 27.10 pg/mL [facility] Comment on above: Interpretive Data: T he 95% CI (Confidence Interval) PPV (Positive Predictive Value) for myocardial infarction in females is 38 pg/mL, in males 51 pg/mL. The results should be used in conjunction with clinical conditions of myocardial infarction. (Access High Sensitivity Troponin I Instructions For Use, [employer], October 2017) Anion gap [Moles/Vol] 9 mmol/L Normal 6 - 16 mEq/L [facility] Calcium [Mass/Vol] 9.8 mg/dL Normal 8.9 - 11. 1 mg/dL [facility] Chloride [Moles/Vol] 107 mmol/L Normal 101 - 1 11 mmol/L [facility] CO2 [Moles/Vol] 27 mmol/L Normal 21 - 31 mmol/L [facility] Creatinine [Mass/Vol] 0.8 mg/dL Normal 0.5 - 1.3 mg/dL [facility] GFR/1.73 sq M.predicted among non-blacks MDRD (S/P/Bld) [Vol rate/Area] 85 mL/min/1.73 m2 Normal >=59mL/min/1 .73 m2 [facility] Comment on above: Interpretive Data: C hronic kidney disease could be indicated at eGFR's of less than 60 mL/min/1.73m2. Kidney failure is indicated at less than 15 mL/min/1.73m2. Glucose [Mass/Vol] 117 mg/dL Normal 55 - 199 mg/dL [facility] Comment on above: Interpretive Data: I f this glucose result represents a fasting glucose, interpretation should refer to the following reference range: 55-99 mg/dL Potassium [Moles/Vol] 3.7 mmol/L Normal 3.5 - 5.3 mmol/L [facility] Sodium [Moles/Vol] 139 mmol/L Normal 135 - 145 mmol/L [facility] Troponin I.cardiac [Mass/Vol] 3.30 pg/mL Low 10.10 - 27.10 pg/mL [facility] Comment on above: Interpretive Data: T he 95% CI (Confidence Interval) PPV (Positive Predictive Value) for myocardial infarction in females is 38 pg/mL, in males 51 pg/mL. The results should be used in conjunction with clinical conditions of myocardial infarction. (Access High Sensitivity Troponin I Instructions For Use, [employer], October 2017) Urea nitrogen [Mass/Vol] 12 mg/dL Normal 5 - 21 mg/dL [facility] Urea nitrogen/Creatinine [Mass ratio] 15 mg/mg Normal 10 - 20 [facility] COAGULATIONOrdered By: Quyen wu Bauer on 01-06-2023 aPTT Coag (PPP) [Time] 32.1 s Normal 25.1 - 36.5 second(s) [facility] Comment on above: Interpretive Data: P scottmeter 15 days - 4 weeks 1 - 5 months 6 - 11 months 1 - 5 years 6 - 10 years 11 - 17 years PTT Mean: 35.4 (27.6-45.6) Mean: 33.5 (24.8-40.7) Mean: 32.4 (25.1-40.7) Mean: 31.6 (24.0-39.2) Mean: 31.6 (26.9-38.7) Mean: 31.0 (24.6-38.4) Pediatric Reference ranges were obtained from a study by douglas Lutz prepared from 1437 samples obtained at 7 different centers using the same coagulation reagent and instrumentation as [facility]. Currently there are no coagulation studies available worldwide for children to 14 days, and no normal ranges. Heparin therapeutic range (represented by Anti-Factor Xa activity of 0.2 - 0.4 U/mL) corresponds to PTT of 56.6 - 109.0 sec. INR Coag (PPP) [Relative time] 1.0 {INR} Invalid Interpretation Code [facility] Comment on above: Interpretive Data: I NR results are specifically intended to assess patients stabilized on long-term Anticoagulation therapy suggested INR s Less Intensive Anticoagulation 2.0 3.0 Conventional Range 3.0 4.5 PT Coag (PPP) [Time] 10.8 s Normal 9.4 - 1 2.5 second(s) [facility] Comment on above: Interpretive Data: 1 5 days - 4 weeks 1 - 5 months 6 -11 months 1 5 years 6 10 years 11 -17 years Mean: 11.2 (9.5 12.6) Mean: 11.0 (9.7 12.8) Mean: 11.0 (9.8 13.0) Mean: 11.3 (9.9 13.4) Mean: 11.7 (10.0 14.6) Mean: 11.8 (10.0 - 14.1) Pediatric Reference ranges were obtained from a study by Yariel Ruthven, et al. prepared from 1437 samples obtained at 7 different centers using the same coagulation reagent and instrumentation as [facility]. Currently there are no coagulation studies available worldwide for children to 14 days, and no normal ranges. HEMATOLOGYOrdered By: SYSTEM SYSTEM on 01-06-2023 Basophils/100 WBC (Bld) 1.3 % Normal 0.0 - 2.0 % [facility] Basophils/Leukocytes Auto (Bld) [Pure # fraction] 0.1 E9/L Normal 0.0 - 0.2 E9/L [facility] Eosinophils/100 WBC (Bld) 2.0 % Normal 0.0 - 8.0 % [facility] Eosinophils/Leukocyte s Auto (Bld) [Pure # fraction] 0.2 E9/L Normal 0.0 - 0.5 E9/L [facility] Lymphocytes/100 WBC (Bld) 37.1 % Normal 14.0 - 50.0 % [facility] Lymphocytes/Leukocyte s Auto (Bld) [Pure # fraction] 2.8 E9/L Normal 1.0 - 4.0 E9/L [facility] Monocytes/100 WBC (Bld) 5.9 % Normal 4.0 - 14.0 % [facility] Monocytes/Leukocytes Auto (Bld) [Pure # fraction] 0.4 E9/L Normal 0.2 - 1.0 E9/L [facility] Neutrophils/100 WBC (Bld) 53.7 % Normal 36.0 - 75.0 % [facility] Neutrophils/Leukocyte s Auto (Bld) [Pure # fraction] 4.0 E9/L Normal 2.0 - 7.5 E9/L [facility] HEMATOLOGYOrdered By: Carolina Jon on 01-06-2023 Erythrocyte distribution width (RBC) [Ratio] 14.5 % High 10.9 - 14.2 % [facility] Hematocrit (Bld) [Volume fraction] 44.0 % Normal 34.0 - 46.0 % [facility] Hemoglobin (Bld) [Mass/Vol] 14.4 g/dL Normal 12.0 - 16.0 gm/dL [facility] MCH (RBC) [Entitic mass] 29.4 pg Normal 27.0 - 34.0 pg [facility] MCHC (RBC) [Mass/Vol] 32.8 g/dL Normal 31.4 - 36.0 gm/dL [facility] MCV (RBC) [Entitic vol] 89.5 fL Normal 80.0 - 100.0 fL [facility] Platelet mean volume (Bld) [Entitic vol] 7.5 fL Normal 6.4 - 10.8 fL [facility] Platelets (Bld) [#/Vol] 283.0 E9/L Normal 150.0 - 500.0 E9/L [facility] RBC (Bld) [#/Vol] 4.9 E12/L Normal 4.3 - 5.9 E12/L [facility] WBC corrected for nucl RBC Auto (Bld) [#/Vol] 7.5 E9/L Normal 4.0 - 11.0 E9/L [facility] CBC AUTO DIFFon 08-06-2022 BASO # 0.1 103/ul Normal 0.0-0.1 [facility] Comment on above: Performed By: #### TEMO LOPEZ #### [facility] [address] [place] [address] Dr. Irina Lopez Basophils/100 WBC (Bld) 0.9 % Normal 0.2-2.0 [facility] Comment on above: Performed By: #### TEMO LOPEZ #### [facility] [address] [place] [address] Dr. Irina Lopez EO # 0.1 103/ul Normal 0.0-0.7 [facility] Comment on above: Performed By: #### TEMO LOPEZ #### [facility] [address] [address] [address] Irina Lopez Eosinophils/100 WBC (Bld) 1.9 % Normal 0.9-7.0 [facility] Comment on above: Performed By: #### TEMO LOPEZ #### [facility] [address] [place] [address] Dr. Irina Lopez Erythrocyte distribution width (RBC) [Ratio] 15.4 % Critically high 11.0-15.0 [facility] Comment on above: Performed By: #### TEMO LOPEZ #### [facility] [address] [place] [address] Dr. Irina Lopez Hematocrit (Bld) [Volume fraction] 42.1 % Normal 36.0-48.0 [facility] Comment on above: Performed By: #### L IVER, CREA #### [facility] [address] [place] [address] Dr. Irina Lopez Hemoglobin (Bld) [Mass/Vol] 13.5 g/dL Normal 12.0-16.0 [facility] Comment on above: Performed By: #### L IVGRICEL, CREA #### [facility] [address] [place] [address] Dr. Irina Lopez IG # 0.02 10e3/ul Normal 0.00-0.03 [facility] Comment on above: Performed By: #### L IVGRICEL CREA #### [facility] [address] [place] [address] Dr. Irina Lopez IG % 0.3 % Normal 0.0-0.5 [facility] Comment on above: Performed By: #### L VIRIDIANA CREA #### [facility] [address] [place] [address] Dr. Irina Lopez LYMPH # 2.2 103/ul Normal 1.2-3.8 [facility] Comment on above: Performed By: #### L VIRIDIANA CREA #### [facility] [address] [place] [address] Dr. Irina Lopez Lymphocytes/100 WBC (Bld) 32.9 % Normal 20.5-60.0 [facility] Comment on above: Performed By: #### L IVGRICEL CREA #### [facility] [address] [place] [address] Dr. Irina Lopez MANUAL DIFF REQ NO Normal [facility] Comment on above: Performed By: #### L IVGRICEL, CREA #### [facility] [address] [place] [address] Dr. Irina Lopez MCH (RBC) [Entitic mass] 29.2 pg Normal 26.7-34.0 [facility] Comment on above: Performed By: #### AHSEEB LOPEZA #### [facility] [address] [place] [address] Dr. Irina Lopez MCHC (RBC) [Mass/Vol] 32.1 g/dL Normal 29.9-35.2 [facility] Comment on above: Performed By: #### Ana KEMP CREA #### [facility] [address] [place] [address] Dr. Irina Lopez MCV (RBC) [Entitic vol] 90.9 fL Normal 81.0-99.0 [facility] Comment on above: Performed By: #### Ana KEMP CREA #### [facility] [address] [place] [address] Dr. Irina Lopez MONO # 0.6 103/ul Normal 0.3-0.8 [facility] Comment on above: Performed By: #### TEMO LOPEZ #### [facility] [address] [place] [address] Dr. Irina Lopez Monocytes/100 WBC (Bld) 8.2 % Normal 1.7-12.0 [facility] Comment on above: Performed By: #### TEMO LOPEZ #### [facility] [address] [place] [address] Dr. Irina Lopez NEUT # 3.8 103/ul Normal 1.4-6.5 [facility] Comment on above: Performed By: #### HASEEB LOPEZA #### [facility] [address] [place] [address] Dr. Irina Lopez Neutrophils/100 WBC (Bld) 55.8 % Normal 43.0-75.0 [facility] Comment on above: Performed By: #### HASEEB LOPEZA #### [facility] [address] [place] [address] Dr. Irina Lopez Platelet mean volume (Bld) [Entitic vol] 9.8 fL Normal 9.5-13.5 [facility] Comment on above: Performed By: #### HASEEB LOPEZA #### [facility] [address] [place] [address] Dr. Irina Lopez PLT 226 103/ul Normal 150-450 [facility] Comment on above: Performed By: #### TEMO LOPEZ #### [facility] [address] [place] [address] Dr. Irina Lopez RBC 4.63 106/ul Normal 4.20-5.40 [facility] Comment on above: Performed By: #### TEMO LOPEZ #### [facility] [address] [place] [address] Dr. Irina Lopez WBC 6.8 103/ul Normal 4.0-11.0 [facility] Comment on above: Performed By: #### TEMO LOPEZ #### [facility] [address] [place] [address] Dr. Irina Lopez CREATININEon 08-06-2022 Creatinine [Mass/Vol] 0.91 mg/dL Normal 0.55-1.02 [facility] Comment on above: Performed By: #### Johnny SHANKS LIVER #### [facility] [address] [place] [address] Dr. Irina Lopez EGFR-AF IRISH >60 Normal >=60 [facility] Comment on above: Performed By: #### Johnny SHANKS LIVER #### [facility] [address] [place] [address] Dr. Irina Lopez EGFR-NON AF IRISH >60 Normal >=60 [facility] Comment on above: Performed By: #### Johnny SHANKS LIVER #### [facility] [address] [place] [address] Dr. Irina Lopez LIVER PROFILEon 08-06-2022 Albumin [Mass/Vol] 3.5 g/dL Normal 3.4-5.0 [facility] Comment on above: Performed By: #### TEMO LOPEZ #### [facility] [address] [place] [address] Dr. Irina Lopez Albumin/Globulin [Mass ratio] 0.8 {ratio} Normal [facility] Comment on above: Performed By: #### TEMO LOPEZ #### [facility] [address] [place] [address] Dr. Irina Lopez ALP [Catalytic activity/Vol] 77 U/L Normal 46-116 [facility] Comment on above: Performed By: #### HASEEB LOPEZA #### [facility] [address] [place] [address] Dr. Irina Lopez ALT [Catalytic activity/Vol] 24 U/L Normal 14-59 [facility] Comment on above: Performed By: #### Ana KEMP CREA #### [facility] [address] [place] [address] Dr. Irina Lopez AST [Catalytic activity/Vol] 13 U/L Critically low 15-37 [facility] Comment on above: Performed By: #### HASEEB LOPEZA #### [facility] [address] [place] [address] Dr. Irina Lopez BILI, CONJUGATED 0.1 mg/dL Normal 0.0-0.2 [facility] Comment on above: Performed By: #### HASEEB LOPEZA #### [facility] [address] [place] [address] Dr. Irina Lopez Bilirubin [Mass/Vol] 0.5 mg/dL Normal 0.2-1.0 [facility] Comment on above: Performed By: #### HASEEB LOPEZA #### [facility] [address] [place] [address] Dr. Irina Lopez Globulin (S) [Mass/Vol] 4.3 g/dL Normal [facility] Comment on above: Performed By: #### Ana KEMP CREA #### [facility] [address] [place] [address] Dr. Irina Lopez Protein [Mass/Vol] 7.8 g/dL Normal 6.4-8.2 [facility] Comment on above: Performed By: #### HASEEB LOPEZA #### [facility] [address] [place] [address] Dr. Irina Lopez SED RATE [facility] 2022 SED RATE 43 mm/hr Critically high <=[address] [facility] Comment on above: Performed By: #### L TEMO KEMP #### [facility] [address] [place] [address] Dr. Irina Lopez QUANTIFERON TB GOLD PLUSon 0 07-11-2022 QuantiFERON Criteria Comment Normal [facility] Comment on above: Result Comment: Davian tiFERON-TB Gold Plus is a qualitative indirect test for M tuberculosis infection (including disease) and is intended for use in conjunction with risk assessment, radiography, and other medical and diagnostic evaluations. The QuantiFERON-TB Gold Plus result is determined by subtracting the Nil value from either TB antigen (Ag) value. The Mitogen tube serves as a control for the test. Performed By: #### Q NTTB #### [facility] [address] [place] [address] Dr. Irina Lopez QuantiFERON Incubation Incubation performed. Normal [facility] Comment on above: Performed By: #### Q NTTB #### [facility] [address] [place] [address] Dr. Irina Lopez QuantiFERON Mitogen Value >10.00 Normal [facility] Comment on above: Performed By: #### Q NTTB #### [facility] [address] [place] [address] Dr. Irina Lopez QuantiFERON Nil Value 0.15 IU/mL Normal [facility] Comment on above: Performed By: #### Q NTTB #### [facility] [address] [place] [address] Dr. Irina Lopez QuantiFERON TB1 Ag Value 0.20 IU/mL Normal [facility] Comment on above: Performed By: #### Q NTTB #### [facility] [address] [place] [address] Dr. Irina Lopez QuantiFERON TB2 Ag Value 0.17 IU/mL Normal [facility] Comment on above: Performed By: #### Q NTTB #### [facility] [address] [place] [address] Dr. Irina Lopez QuantiFERON-TB Gold Plus Negative Normal Negative [facility] Comment on above: Result Comment: No r esponse to M tuberculosis antigens detected. Infection with M tuberculosis is unlikely, but high risk individuals should be considered for additional testing (ATS/IDSA/CDC Clinical Practice Guidelines, 2017). The reference range is an Antigen minus Nil result of <0.35 IU/mL. Chemiluminescence immunoassay methodology Performed By: #### Q NTTB #### [facility] [address] [place] [address] Dr. Irina Lopez CBC AUTO DIFFon 05-16-2022 BASO # 0.1 103/ul Normal 0.0-0.1 [facility] Comment on above: Performed By: #### L ACT #### [facility] [address] [place] [address] Dr. Irina Lopez Basophils/100 WBC (Bld) 1.0 % Normal 0.2-2.0 [facility] Comment on above: Performed By: #### L ACT #### [facility] [address] [place] [address] Dr. Irina Lopez EO # 0.2 103/ul Normal 0.0-0.7 [facility] Comment on above: Performed By: #### L ACT #### [facility] [address] [place] [address] Dr. Irina Lopez Eosinophils/100 WBC (Bld) 2.6 % Normal 0.9-7.0 [facility] Comment on above: Performed By: #### L ACT #### [facility] [address] [place] [address] Dr. Irina Lopez Erythrocyte distribution width (RBC) [Ratio] 13.9 % Normal 11.0-15.0 [facility] Comment on above: Performed By: #### L ACT #### [facility] [address] [place] [address] Dr. Irina Lopez Hematocrit (Bld) [Volume fraction] 41.5 % Normal 36.0-48.0 [facility] Comment on above: Performed By: #### L ACT #### [facility] [address] [place] [address] Dr. Irina Lopez Hemoglobin (Bld) [Mass/Vol] 13.4 g/dL Normal 12.0-16.0 [facility] Comment on above: Performed By: #### L ACT #### [facility] [address] [address] [address] Irina Lopez IG # 0.02 10e3/ul Normal 0.00-0.03 [facility] Comment on above: Performed By: #### L ACT #### [facility] [address] [address] [address] Irina Lopez IG % 0.3 % Normal 0.0-0.5 [facility] Comment on above: Performed By: #### L ACT #### [facility] [address] [place] [address] Dr. Irina Lopez LYMPH # 2.4 103/ul Normal 1.2-3.8 [facility] Comment on above: Performed By: #### L ACT #### [facility] [address] [place] [address] Dr. Irina Lopez Lymphocytes/100 WBC (Bld) 33.8 % Normal 20.5-60.0 [facility] Comment on above: Performed By: #### L ACT #### [facility] [address] [place] [address] Dr. Irina Lopez MANUAL DIFF REQ NO Normal [facility] Comment on above: Performed By: #### L ACT #### [facility] [address] [place] [address] Dr. Irina Lopez MCH (RBC) [Entitic mass] 29.1 pg Normal 26.7-34.0 [facility] Comment on above: Performed By: #### L ACT #### [facility] [address] [place] [address] Dr. Irina Lopez MCHC (RBC) [Mass/Vol] 32.3 g/dL Normal 29.9-35.2 [facility] Comment on above: Performed By: #### L ACT #### [facility] [address] [place] [address] Dr. Irina Lopez MCV (RBC) [Entitic vol] 90.2 fL Normal 81.0-99.0 [facility] Comment on above: Performed By: #### L ACT #### [facility] [address] [address] [address] Irina Lopez MONO # 0.5 103/ul Normal 0.3-0.8 [facility] Comment on above: Performed By: #### L ACT #### [facility] [address] [place] [address] Dr. Irina Lopez Monocytes/100 WBC (Bld) 7.0 % Normal 1.7-12.0 [facility] Comment on above: Performed By: #### L ACT #### [facility] [address] [place] [address] Dr. Irina Lopez NEUT # 3.9 103/ul Normal 1.4-6.5 [facility] Comment on above: Performed By: #### L ACT #### [facility] [address] [place] [address] Dr. Irina Lopez Neutrophils/100 WBC (Bld) 55.3 % Normal 43.0-75.0 [facility] Comment on above: Performed By: #### L ACT #### [facility] [address] [place] [address] Dr. Irina Lopez Platelet mean volume (Bld) [Entitic vol] 9.1 fL Critically low 9.5-13.5 [facility] Comment on above: Performed By: #### L ACT #### [facility] [address] [place] [address] Dr. Irina Lopez PLT 295 103/ul Normal 150-450 [facility] Comment on above: Performed By: #### L ACT #### [facility] [address] [place] [address] Dr. Irina Lopez RBC 4.60 106/ul Normal 4.20-5.40 [facility] Comment on above: Performed By: #### L ACT #### [facility] [address] [place] [address] Dr. Irina Lopez WBC 7.1 103/ul Normal 4.0-11.0 [facility] Comment on above: Performed By: #### L ACT #### [facility] [address] [place] [address] Dr. Irina Lopez CREATININEon 05-16-2022 Creatinine [Mass/Vol] 0.74 mg/dL Normal 0.55-1.02 [facility] Comment on above: Performed By: #### TEMO LOPEZ #### [facility] [address] [place] [address] Dr. Irina Lopez EGFR-AF IRISH >60 Normal >=60 [facility] Comment on above: Performed By: #### TEMO LOPEZ #### [facility] [address] [place] [address] Dr. Irina Lopez EGFR-NON AF IRISH >60 Normal >=60 [facility] Comment on above: Performed By: #### TEMO LOPEZ #### [facility] [address] [place] [address] Dr. Irina Lopez LIVER PROFILEon 05-16-2022 Albumin [Mass/Vol] 3.5 g/dL Normal 3.4-5.0 [facility] Comment on above: Performed By: #### TEMO LOPEZ #### [facility] [address] [place] [address] Dr. Irina Lopez Albumin/Globulin [Mass ratio] 0.9 {ratio} Normal [facility] Comment on above: Performed By: #### TEMO LOPEZ #### [facility] [address] [place] [address] Dr. Irina Lopez ALP [Catalytic activity/Vol] 90 U/L Normal 46-116 [facility] Comment on above: Performed By: #### TEMO LOPEZ #### [facility] [address] [place] [address] Dr. Irina Lopez ALT [Catalytic activity/Vol] 20 U/L Normal 14-59 [facility] Comment on above: Performed By: #### TEMO LOPEZ #### [facility] [address] [place] [address] Dr. Irina Lopez AST [Catalytic activity/Vol] 17 U/L Normal 15-37 [facility] Comment on above: Performed By: #### TEMO LOPEZ #### [facility] [address] [place] [address] Dr. Irina Lopez BILI, CONJUGATED 0.2 mg/dL Normal 0.0-0.2 [facility] Comment on above: Performed By: #### L VIRIDIANA CREA #### [facility] [address] [place] [address] Dr. Irina Lopez Bilirubin [Mass/Vol] 0.7 mg/dL Normal 0.2-1.0 [facility] Comment on above: Performed By: #### L VIRIDIANA CREA #### [facility] [address] [place] [address] Dr. Irina Lopez Globulin (S) [Mass/Vol] 4.1 g/dL Normal [facility] Comment on above: Performed By: #### L VIRIDIANA CREA #### [facility] [address] [place] [address] Dr. Irina Lopez Protein [Mass/Vol] 7.6 g/dL Normal 6.4-8.2 [facility] Comment on above: Performed By: #### L VIRIDIANA CREA #### [facility] [address] [place] [address] Dr. Irina Lopez SED RATE [facility] 2022 SED RATE 84 mm/hr Critically high <=30 [facility] [facility] Comment on above: Performed By: #### S EDR #### [facility] [address] [place] [address] Dr. rIina Lopez [facility]on 02-27 SARS-CoV-2 (COVID-19) RNA HASEEB+probe Ql (Unsp spec) Not detected Normal NOT DETECTED [facility] Comment on above: Result Comment: This test is not yet approved or cleared by the [place] FDA. When there are no FDA-approved or cleared tests available, and other criteria are met, FDA can make tests available under an emergency access mechanism called an Emergency Use Authorization (EUA). The EUA for this test is supported by the [place] of Health and Human Service's (HHS's) declaration that circumstances exist to justify the emergency use of in vitro diagnostics for the detection and/or diagnosis of the virus that causes COVID-19. This EUA will remain in effect (meaning this test can be used) for the duration of the COVID-19 declaration justifying emergency of IVDs, unless it is terminated or revoked by FDA (after which the test may no longer be used). When diagnostic testing is negative, the possibility of a false negative should be considered in the context of a patient's recent exposures and the presence of clinical signs and symptoms consistent with SARS-CoV-2. Performed By: #### L VIRIDIANA CREA #### [facility] [address] [place] [address] Dr. Irina Lopez CBC AUTO DIFFon 02-04-2022 BASO # 0.1 103/ul Normal 0.0-0.1 [facility] Comment on above: Performed By: #### L VIRIDIANA CREA #### [facility] [address] [place] [address] Dr. Irina Lopez Basophils/100 WBC (Bld) 1.4 % Normal 0.2-2.0 [facility] Comment on above: Performed By: #### Ana KEMP CREA #### [facility] [address] [place] [address] Dr. Irina Lopez EO # 0.1 103/ul Normal 0.0-0.7 [facility] Comment on above: Performed By: #### Ana KEMP CREA #### [facility] [address] [place] [address] Dr. Irina Lopez Eosinophils/100 WBC (Bld) 1.7 % Normal 0.9-7.0 [facility] Comment on above: Performed By: #### L VIRIDIANA CREA #### [facility] [address] [place] [address] Dr. Irina Lopez Erythrocyte distribution width (RBC) [Ratio] 14.1 % Normal 11.0-15.0 [facility] Comment on above: Performed By: #### L VIRIDIANA CREA #### [facility] [address] [place] [address] Dr. Irina Lopez Hematocrit (Bld) [Volume fraction] 41.2 % Normal 36.0-48.0 [facility] Comment on above: Performed By: #### L VIRIDIANA CREA #### [facility] [address] [place] [address] Dr. Irina Lopez Hemoglobin (Bld) [Mass/Vol] 13.6 g/dL Normal 12.0-16.0 [facility] Comment on above: Performed By: #### L IVGRICEL CREA #### [facility] [address] [place] [address] Dr. Irina Lopez IG # 0.01 10e3/ul Normal 0.00-0.03 [facility] Comment on above: Performed By: #### L IVGRICEL CREA #### [facility] [address] [place] [address] Dr. Irina Lopez IG % 0.1 % Normal 0.0-0.5 [facility] Comment on above: Performed By: #### L VIRIDIANA CREA #### [facility] [address] [place] [address] Dr. Irina Lopez LYMPH # 2.9 103/ul Normal 1.2-3.8 [facility] Comment on above: Performed By: #### L VIRIDIANA CREA #### [facility] [address] [place] [address] Dr. rIina Lopez Lymphocytes/100 WBC (Bld) 40.3 % Normal 20.5-60.0 [facility] Comment on above: Performed By: #### L VIRIDIANA CREA #### [facility] [address] [place] [address] Dr. Irina Lopez MANUAL DIFF REQ NO Normal [facility] Comment on above: Performed By: #### L IVGRICEL CREA #### [facility] [address] [place] [address] Dr. Irina Lopez MCH (RBC) [Entitic mass] 30.3 pg Normal 26.7-34.0 [facility] Comment on above: Performed By: #### L IVGRICEL CREA #### [facility] [address] [place] [address] Dr. Irina Lopez MCHC (RBC) [Mass/Vol] 33.0 g/dL Normal 29.9-35.2 [facility] Comment on above: Performed By: #### TEMO LOPEZ #### [facility] [address] [place] [address] Dr. Irina Lopez MCV (RBC) [Entitic vol] 91.8 fL Normal 81.0-99.0 [facility] Comment on above: Performed By: #### TEMO LOPEZ #### [facility] [address] [place] [address] Dr. Irina Lopez MONO # 0.5 103/ul Normal 0.3-0.8 [facility] Comment on above: Performed By: #### TEMO LOPEZ #### [facility] [address] [place] [address] Dr. Irina Lopez Monocytes/100 WBC (Bld) 7.2 % Normal 1.7-12.0 [facility] Comment on above: Performed By: #### TEMO LOPEZ #### [facility] [address] [place] [address] Dr. Irina Lopez NEUT # 3.6 103/ul Normal 1.4-6.5 [facility] Comment on above: Performed By: #### TEMO LOPEZ #### [facility] [address] [place] [address] Dr. Irina Lopez Neutrophils/100 WBC (Bld) 49.3 % Normal 43.0-75.0 [facility] Comment on above: Performed By: #### TEMO LOPEZ #### [facility] [address] [place] [address] Dr. Irina Lopez Platelet mean volume (Bld) [Entitic vol] 9.9 fL Normal 9.5-13.5 [facility] Comment on above: Performed By: #### TEMO LOPEZ #### [facility] [address] [place] [address] Dr. Irina Lopez PLT 287 103/ul Normal 150-450 [facility] Comment on above: Performed By: #### TEMO LOPEZ #### [facility] [address] [address] [address] Irina Lopez RBC 4.49 106/ul Normal 4.20-5.40 [facility] Comment on above: Performed By: #### L TEMO KEMP #### [facility] [address] [address] [address] Irina Lopez WBC 7.2 103/ul Normal 4.0-11.0 [facility] Comment on above: Performed By: #### L TEMO KEMP #### [facility] [address] [place] [address] Dr. Irina Lopez LIPID PROFILEon 02-04-2022 CHOL-HDL RATIO NORM SEE BELOW Normal [facility] Comment on above: Result Comment: 3.3 - 4.4 LOW RISK 4.4 - 7.1 AVERAGE RISK 7.1 - 11.0 MODERATE RISK >11.0 HIGH RISK Performed By: #### L ACT #### [facility] [address] [place] [address] Dr. Irina Lopez Cholesterol [Mass/Vol] 175 mg/dL Normal <=200 [facility] Comment on above: Performed By: #### L ACT #### [facility] [address] [address] [address] Irina Lopez Cholesterol in HDL [Mass/Vol] 36 mg/dL Critically low 40-60 [facility] Comment on above: Performed By: #### L ACT #### [facility] [address] [address] [address] Irina Lopez Cholesterol in LDL [Mass/Vol] 124.2 mg/dL Normal [facility] Comment on above: Performed By: #### L ACT #### [facility] [address] [place] [address] Dr. Irina Lopez Cholesterol.total/Cho lesterol in HDL [Mass ratio] 4.9 {ratio} Normal [facility] Comment on above: Performed By: #### L ACT #### [facility] [address] [address] [address] Irina Lopez HDL NORMAL > or = 60 mg/dl - LO W CARDIOVASCULAR RISK <40 mg/dl - HIGH CARDIOVASCULAR RISK Normal [facility] Comment on above: Performed By: #### L ACT #### [facility] [address] [address] [address] Irina Lopez LDL CALC NORMAL SEE BELOW Normal [facility] Comment on above: Result Comment: <100 mg/dl OPTIMAL 100 - 129 mg/dl NEAR OR ABOVE OPTIMAL 130 - 159 mg/dl BORDERLINE HIGH 160 - 189 mg/dl HIGH >190 mg/dl VERY HIGH Performed By: #### L ACT #### [facility] [address] [address] [address] Irina Lopez Triglyceride [Mass/Vol] 74 mg/dL Normal <=150 [facility] Comment on above: Performed By: #### L ACT #### [facility] [address] [address] [address] Irina Lopez VLDL CALC 14.8 mg/dL Normal [facility] Comment on above: Performed By: #### L ACT #### [facility] [address] [place] [address] Dr. Irina Lopez PROF 14(COMP METB)on 022 Albumin [Mass/Vol] 3.6 g/dL Normal 3.4-5.0 [facility] Comment on above: Performed By: #### L ACT #### [facility] [address] [place] [address] Dr. Irina Lopez Albumin/Globulin [Mass ratio] 0.9 {ratio} Normal [facility] Comment on above: Performed By: #### L ACT #### [facility] [address] [address] [address] Irina Lopez ALP [Catalytic activity/Vol] 72 U/L Normal 46-116 [facility] Comment on above: Performed By: #### L ACT #### [facility] [address] [place] [address] Dr. Irina Lopez ALT [Catalytic activity/Vol] 18 U/L Normal 14-59 [facility] Comment on above: Performed By: #### L ACT #### [facility] [address] [place] [address] Dr. Irina Lopez Anion gap [Moles/Vol] 7.2 mmol/L Normal [facility] Comment on above: Performed By: #### L ACT #### [facility] [address] [address] [address] Irina Lopez AST [Catalytic activity/Vol] 13 U/L Critically low 15-37 [facility] Comment on above: Performed By: #### L ACT #### [facility] [address] [address] [address] Irina Lopez Bilirubin [Mass/Vol] 0.4 mg/dL Normal 0.2-1.0 [facility] Comment on above: Performed By: #### L ACT #### [facility] [address] [address] [address] Irina Lopez Calcium [Mass/Vol] 9.6 mg/dL Normal 8.5-10.1 [facility] Comment on above: Performed By: #### L ACT #### [facility] [address] [address] [address] Irina Lopez Chloride [Moles/Vol] 106 mmol/L Normal 98-107 [facility] Comment on above: Performed By: #### L ACT #### [facility] [address] [address] [address] Irina Lopez CO2 [Moles/Vol] 31.8 mmol/L Normal 21.0-32.0 [facility] Comment on above: Performed By: #### L ACT #### [facility] [address] [address] [address] Irina Lopez Creatinine [Mass/Vol] 0.74 mg/dL Normal 0.55-1.02 [facility] Comment on above: Performed By: #### L ACT #### [facility] [address] [address] [address] Irina Lopez EGFR-AF IRISH >60 Normal >=60 [facility] Comment on above: Performed By: #### L ACT #### [facility] [address] [address] [address] Irina Lopez EGFR-NON AF IRISH >60 Normal >=60 [facility] Comment on above: Performed By: #### L ACT #### [facility] [address] [address] [address] Irina Lopez Globulin (S) [Mass/Vol] 4.0 g/dL Normal [facility] Comment on above: Performed By: #### L ACT #### [facility] [address] [address] [address] Irina Lopez Glucose [Mass/Vol] 93 mg/dL Normal 74-106 [facility] Comment on above: Performed By: #### L ACT #### [facility] [address] [address] [address] Irina Lopez Potassium [Moles/Vol] 4.0 mmol/L Normal 3.5-5.1 [facility] Comment on above: Performed By: #### L ACT #### [facility] [address] [address] [address] Irina Lopez Protein [Mass/Vol] 7.6 g/dL Normal 6.4-8.2 [facility] Comment on above: Performed By: #### L ACT #### [facility] [address] [address] [address] Irina Lopez Sodium [Moles/Vol] 141 mmol/L Normal 136-145 [facility] Comment on above: Performed By: #### L ACT #### [facility] [address] [address] [address] Irina Lopez Urea nitrogen [Mass/Vol] 13.0 mg/dL Normal 7.0-18.0 [facility] Comment on above: Performed By: #### L ACT #### [facility] [address] [address] [address] Irina Lopez Urea nitrogen/Creatinine [Mass ratio] 17.6 mg/mg Normal [facility] Comment on above: Performed By: #### L ACT #### [facility] [address] [place] [address] Dr. Irina Lopez [facility] ([facility]on 10-29 SARS-CoV-2 (COVID-19) RNA HASEEB+probe Ql (Unsp spec) Detected Critically abnormal NOT DETECTED [facility] Comment on above: Result Comment: This test is not yet approved or cleared by the [place] FDA. When there are no FDA-approved or cleared tests available, and other criteria are met, FDA can make tests available under an emergency access mechanism called an Emergency Use Authorization (EUA). The EUA for this test is supported by the [place] of Health and Human Service's (HHS's) declaration that circumstances exist to justify the emergency use of in vitro diagnostics for the detection and/or diagnosis of the virus that causes COVID-19. This EUA will remain in effect (meaning this test can be used) for the duration of the COVID-19 declaration justifying emergency of IVDs, unless it is terminated or revoked by FDA (after which the test may no longer be used). Performed By: #### C VDTBH #### [facility] [address] [address] [address] Irina Lopez CLOSTRIDIUM DIFFICILE PCRon 10-25-2021 C difficile Toxin Gene HASEEB Positive Abnormal Negative [facility] Comment on above: Result Comment: Sae nt Requested Flag Toxigenic C difficile: Positive Epidemic Strain [id number]: Presumptive Positive Performed By: #### L IVER, CREA #### [facility] [address] [address] [address] ABD/PELV W CONon 09-18-19 CT ABD/PELV W CON TECHNIQUE: CT abdome n and pelvis. Helically acquired axial images of the abdomen and pelvis from the diaphragm to the iliac crest and the iliac crest to the symphysis pubis. Sagittal and coronal multiplanar reconstructions. . HISTORY: Right lower quadrant pain COMPARISON: CT abdomen/pelvis dated 09/05/2021 FINDINGS: Mild right lung base atelectasis is seen. The heart size is normal. The liver, gallbladder, spleen, pancreas and bilateral adrenal glands appear unremarkable. Bilateral kidneys demonstrate normal size, morphology and contrast enhancement. There is no evidence for hydronephrosis bilaterally. The urinary bladder appears unremarkable. The stomach and duodenum appear unremarkable. Nonobstructive bowel pattern is seen. Postsurgical changes are seen in the right lower abdomen related to recent prior appendectomy. Abnormal fluid collection is seen in the right lower abdomen measuring approximately 9.6 x 3.1 x 3.2 cm (CC x ML x AP), suggestive of an abscess. Significant surrounding mesenteric fat stranding as well as small adjacent free fluid is seen. Wall thickening of the adjacent cecum and distal ileum is seen, likely representing reactive enteritis/colitis. The vascular structures demonstrate normal caliber. The abdominal wall and visualized soft tissues appear unremarkable. No acute osseous abnormality is seen. IMPRESSION: Postsurgical changes are seen in the right lower abdomen related to recent prior appendectomy. Abnormal fluid collection suggestive of large abscess is seen in the right lower abdomen measuring approximately 9.6 x 3.1 x 3.2 cm. Wall thickening of the adjacent cecum and distal ileum is seen, likely representing reactive enteritis/colitis. Electronically authenticated by: LACHELLE GÓMEZ Date: 2021-09-17 18:38 Normal [facility] CBC AUTO DIFFon 09-07-2021 BASO # 0.1 103/ul Normal 0.0-0.1 [facility] Comment on above: Performed By: #### C BC #### [facility] [address] [place] [address] Dr. Irina Lopez Basophils/100 WBC (Bld) 0.7 % Normal 0.2-2.0 [facility] Comment on above: Performed By: #### C BC #### [facility] [address] [place] [address] Dr. Irina Lopez EO # 0.0 103/ul Normal 0.0-0.7 [facility] Comment on above: Performed By: #### C BC #### [facility] [address] [place] [address] Dr. Irina Lopez Eosinophils/100 WBC (Bld) 0.5 % Critically low 0.9-7.0 [facility] Comment on above: Performed By: #### C BC #### [facility] [address] [place] [address] Dr. Irina Lopez Erythrocyte distribution width (RBC) [Ratio] 14.6 % Normal 11.0-15.0 [facility] Comment on above: Performed By: #### C BC #### [facility] [address] [place] [address] Dr. Irina Lopez Hematocrit (Bld) [Volume fraction] 35.4 % Critically low 36.0-48.0 [facility] Comment on above: Performed By: #### C BC #### [facility] [address] [place] [address] Dr. Irina Lopez Hemoglobin (Bld) [Mass/Vol] 11.4 g/dL Critically low 12.0-16.0 [facility] Comment on above: Performed By: #### C BC #### [facility] [address] [place] [address] Dr. Irina Lopez IG # 0.02 10e3/ul Normal 0.00-0.03 [facility] Comment on above: Performed By: #### C BC #### [facility] [address] [place] [address] Dr. Irina Lopez IG % 0.2 % Normal 0.0-0.5 [facility] Comment on above: Performed By: #### C BC #### [facility] [address] [place] [address] Dr. Irina Lopez LYMPH # 2.0 103/ul Normal 1.2-3.8 [facility] Comment on above: Performed By: #### C BC #### [facility] [address] [place] [address] Dr. Irina Lopez Lymphocytes/100 WBC (Bld) 23.0 % Normal 20.5-60.0 [facility] Comment on above: Performed By: #### C BC #### [facility] [address] [place] [address] Dr. Irina Lopez MANUAL DIFF REQ NO Normal [facility] Comment on above: Performed By: #### C BC #### [facility] [address] [place] [address] Dr. Irina Lopez MCH (RBC) [Entitic mass] 30.2 pg Normal 26.7-34.0 [facility] Comment on above: Performed By: #### C BC #### [facility] [address] [place] [address] Dr. Irina Lopez MCHC (RBC) [Mass/Vol] 32.2 g/dL Normal 29.9-35.2 [facility] Comment on above: Performed By: #### C BC #### [facility] [address] [address] [address] Irina Lopez MCV (RBC) [Entitic vol] 93.9 fL Normal 81.0-99.0 [facility] Comment on above: Performed By: #### C BC #### [facility] [address] [address] [address] Irina Lopez MONO # 0.9 103/ul Critically high 0.3-0.8 [facility] Comment on above: Performed By: #### C BC #### [facility] [address] [address] [address] Irina Lopez Monocytes/100 WBC (Bld) 10.2 % Normal 1.7-12.0 [facility] Comment on above: Performed By: #### C BC #### [facility] [address] [address] [address] Irina Lopez NEUT # 5.8 103/ul Normal 1.4-6.5 [facility] Comment on above: Performed By: #### C BC #### [facility] [address] [address] [address] Irina Lopez Neutrophils/100 WBC (Bld) 65.4 % Normal 43.0-75.0 [facility] Comment on above: Performed By: #### C BC #### [facility] [address] [address] [address] Irina Lopez Platelet mean volume (Bld) [Entitic vol] 11.3 fL Normal 9.5-13.5 [facility] Comment on above: Performed By: #### C BC #### [facility] [address] [address] [address] Irina Lopez PLT 123 103/ul Critically low 150-450 [facility] Comment on above: Performed By: #### C BC #### [facility] [address] [address] [address] Irina Lopez RBC 3.77 106/ul Critically low 4.20-5.40 [facility] Comment on above: Performed By: #### C BC #### [facility] [address] [place] [address] Dr. Irina Lopez WBC 8.8 103/ul Normal 4.0-11.0 [facility] Comment on above: Performed By: #### C BC #### [facility] [address] [place] [address] Dr. Irina Lopez CBC AUTO DIFFon 09-06-2021 BASO # 0.1 103/ul Normal 0.0-0.1 [facility] Comment on above: Performed By: #### L VIRIDIANA CREA #### [facility] [address] [place] [address] Dr. Irina Lopez Basophils/100 WBC (Bld) 0.4 % Normal 0.2-2.0 [facility] Comment on above: Performed By: #### L VIRIDIANA CREA #### [facility] [address] [place] [address] Dr. Irina Lopez EO # 0.0 103/ul Normal 0.0-0.7 [facility] Comment on above: Performed By: #### HASEEB LOPEZA #### [facility] [address] [place] [address] Dr. Irina Lopez Eosinophils/100 WBC (Bld) 0.0 % Critically low 0.9-7.0 [facility] Comment on above: Performed By: #### HASEEB LOPEZA #### [facility] [address] [place] [address] Dr. Irina Lopez Erythrocyte distribution width (RBC) [Ratio] 14.4 % Normal 11.0-15.0 [facility] Comment on above: Performed By: #### L HASEEB KEMPA #### [facility] [address] [place] [address] Dr. Irina Lopez Hematocrit (Bld) [Volume fraction] 37.7 % Normal 36.0-48.0 [facility] Comment on above: Performed By: #### L HASEEB KEMPA #### [facility] [address] [place] [address] Dr. Irina Lopez Hemoglobin (Bld) [Mass/Vol] 12.2 g/dL Normal 12.0-16.0 [facility] Comment on above: Performed By: #### TEMO LOPEZ #### [facility] [address] [place] [address] Dr. Irina Lopez IG # 0.08 10e3/ul Critically high 0.00-0.03 [facility] Comment on above: Performed By: #### HASEEB LOPEZA #### [facility] [address] [place] [address] Dr. Irina Lopez IG % 0.6 % Critically high 0.0-0.[address] [facility] Comment on above: Performed By: #### TEMO LOPEZ #### [facility] [address] [place] [address] Dr. Irina Lopez LYMPH # 1.7 103/ul Normal 1.2-3.8 [facility] Comment on above: Performed By: #### TEMO LOPEZ #### [facility] [address] [place] [address] Dr. Irina Lopez Lymphocytes/100 WBC (Bld) 12.5 % Critically low 20.5-60.0 [facility] Comment on above: Performed By: #### TEMO LOPEZ #### [facility] [address] [place] [address] Dr. Irina Lopez MANUAL DIFF REQ NO Normal [facility] Comment on above: Performed By: #### TEMO LOPEZ #### [facility] [address] [place] [address] Dr. Irina Lopez MCH (RBC) [Entitic mass] 30.5 pg Normal 26.7-34.0 [facility] Comment on above: Performed By: #### TEMO LOPEZ #### [facility] [address] [place] [address] Dr. Irina Lopez MCHC (RBC) [Mass/Vol] 32.4 g/dL Normal 29.9-35.2 [facility] Comment on above: Performed By: #### TEMO LOPEZ #### [facility] [address] [place] [address] Dr. Irina Lopez MCV (RBC) [Entitic vol] 94.3 fL Normal 81.0-99.0 [facility] Comment on above: Performed By: #### L VIRIDIANA CREA #### [facility] [address] [place] [address] Dr. Irina Lopez MONO # 1.1 103/ul Critically high 0.3-0.[address] [facility] Comment on above: Performed By: #### L VIRIDIANA CREA #### [facility] [address] [place] [address] Dr. Irina Lopez Monocytes/100 WBC (Bld) 8.2 % Normal 1.7-12.0 [facility] Comment on above: Performed By: #### L VIRIDIANA CREA #### [facility] [address] [place] [address] Dr. Irina Lopez NEUT # 10.4 103/ul Critically high 1.4-6.5 [facility] Comment on above: Performed By: #### L VIRIDIANA CREA #### [facility] [address] [place] [address] Dr. Irina Lopez Neutrophils/100 WBC (Bld) 78.3 % Critically high 43.0-75.0 [facility] Comment on above: Performed By: #### L VIRIDIANA CREA #### [facility] [address] [place] [address] Dr. Irina Lopez Platelet mean volume (Bld) [Entitic vol] 9.8 fL Normal 9.5-13.5 [facility] Comment on above: Performed By: #### L VIRIDIANA CREA #### [facility] [address] [place] [address] Dr. Irina Lpoez PLT 181 103/ul Normal 150-450 [facility] Comment on above: Performed By: #### L VIRIDIANA CREA #### [facility] [address] [place] [address] Dr. Irina Lopez RBC 4.00 106/ul Critically low 4.20-5.[address] [facility] Comment on above: Performed By: #### TEMO LOPEZ #### [facility] [address] [address] [address] Irina Lopez WBC 13.3 103/ul Critically high 4.0-11.0 [facility] Comment on above: Performed By: #### TEMO LOPEZ #### [facility] [address] [place] [address] Dr. Irina Lopez LACTATE/LACTIC ACIDon 2021 Lactate [Moles/Vol] 0.8 mmol/L Normal 0.4-1.9 [facility] Comment on above: Performed By: #### TEMO LOPEZ #### [facility] [address] [place] [address] Dr. Irina Lopez CBC AUTO DIFFon 09-05-2021 BASO # 0.1 103/ul Normal 0.0-0.1 [facility] Comment on above: Performed By: #### TEMO LOPEZ #### [facility] [address] [place] [address] Dr. Irina Lopez Basophils/100 WBC (Bld) 0.4 % Normal 0.2-2.0 [facility] Comment on above: Performed By: #### TEMO LOPEZ #### [facility] [address] [place] [address] Dr. Irina Lopez EO # 0.0 103/ul Normal 0.0-0.7 [facility] Comment on above: Performed By: #### TEMO LOPEZ #### [facility] [address] [place] [address] Dr. Irina Lopez Eosinophils/100 WBC (Bld) 0.0 % Critically low 0.9-7.0 [facility] Comment on above: Performed By: #### TEMO LOPEZ #### [facility] [address] [place] [address] Dr. Irina Lopez Erythrocyte distribution width (RBC) [Ratio] 14.6 % Normal 11.0-15.0 [facility] Comment on above: Performed By: #### TEMO LOPEZ #### [facility] [address] [place] [address] Dr. Irina Lopez Hematocrit (Bld) [Volume fraction] 42.8 % Normal 36.0-48.0 [facility] Comment on above: Performed By: #### L IVER, CREA #### [facility] [address] [place] [address] Dr. Irina Lopez Hemoglobin (Bld) [Mass/Vol] 14.2 g/dL Normal 12.0-16.0 [facility] Comment on above: Performed By: #### L IVGRICEL CREA #### [facility] [address] [place] [address] Dr. Irina Lopez IG # 0.07 10e3/ul Critically high 0.00-0.03 [facility] Comment on above: Performed By: #### L IVGRICEL CREA #### [facility] [address] [place] [address] Dr. Irina Lopez IG % 0.5 % Normal 0.0-0.5 [facility] Comment on above: Performed By: #### L VIRIDIANA CREA #### [facility] [address] [place] [address] Dr. Irina Lopez LYMPH # 2.7 103/ul Normal 1.2-3.8 [facility] Comment on above: Performed By: #### L IVGRICEL CREA #### [facility] [address] [place] [address] Dr. Irina Lopez Lymphocytes/100 WBC (Bld) 18.0 % Critically low 20.5-60.0 [facility] Comment on above: Performed By: #### L IVGRICEL CREA #### [facility] [address] [place] [address] Dr. Irina Lopez MANUAL DIFF REQ NO Normal [facility] Comment on above: Performed By: #### L IVER, CREA #### [facility] [address] [place] [address] Dr. Irina Lopez MCH (RBC) [Entitic mass] 30.4 pg Normal 26.7-34.0 [facility] Comment on above: Performed By: #### TEMO LOPEZ #### [facility] [address] [place] [address] Dr. Irina Lopez MCHC (RBC) [Mass/Vol] 33.2 g/dL Normal 29.9-35.2 [facility] Comment on above: Performed By: #### TEMO LOPEZ #### [facility] [address] [place] [address] Dr. Irina Lopez MCV (RBC) [Entitic vol] 91.6 fL Normal 81.0-99.0 [facility] Comment on above: Performed By: #### TEMO LOPEZ #### [facility] [address] [place] [address] Dr. Irina Lopez MONO # 1.2 103/ul Critically high 0.3-0.[address] [facility] Comment on above: Performed By: #### TEMO LOPEZ #### [facility] [address] [place] [address] Dr. Irina Lopez Monocytes/100 WBC (Bld) 8.0 % Normal 1.7-12.0 [facility] Comment on above: Performed By: #### TEMO LOPEZ #### [facility] [address] [place] [address] Dr. Irina Lopez NEUT # 11.0 103/ul Critically high 1.4-6.5 [facility] Comment on above: Performed By: #### TEMO LOPEZ #### [facility] [address] [place] [address] Dr. Irina Lopez Neutrophils/100 WBC (Bld) 73.1 % Normal 43.0-75.0 [facility] Comment on above: Performed By: #### TEMO LOPEZ #### [facility] [address] [place] [address] Dr. Irina Lopez Platelet mean volume (Bld) [Entitic vol] 9.9 fL Normal 9.5-13.5 [facility] Comment on above: Performed By: #### TEMO LOPEZ #### [facility] [address] [address] [address] Irina Lopez PLT 198 103/ul Normal 150-450 [facility] Comment on above: Performed By: #### TEMO LOPEZ #### [facility] [address] [address] [address] Irina Lopez RBC 4.67 106/ul Normal 4.20-5.40 [facility] Comment on above: Performed By: #### TEMO LOPEZ #### [facility] [address] [address] [address] Irina Lopez WBC 15.1 103/ul Critically high 4.0-11.0 [facility] Comment on above: Performed By: #### TEMO LOPEZ #### [facility] [address] [address] ABD/PELV W CONon 09-06-[address] ABD/PELV W CON EXAMINATION: CT ABD/PELV W CON HISTORY: Acute right lower quadrant pain for 2 days with fever. COMPARISON: None. TECHNIQUE: Enhanced helical acquisition obtained through the abdomen or the pelvis. Dose reduction techniques were achieved by using automated exposure control and/or adjustment of mA and/or kV according to patient size and/or use of iterative reconstruction technique. FINDINGS: The visualized lung bases and the pleural spaces are clear. Mild hepatic steatosis. Unremarkable gallbladder. The spleen, pancreas, adrenal glands and the kidneys are unremarkable. No enlarged lymph nodes within the abdomen or the pelvis. Dilated appendix measuring 1.6 cm in diameter with adjacent periappendiceal inflammatory changes. No evidence of abscess or free intraperitoneal gas. No ascites. IMPRESSION: 1. Dilated inflamed appendix consistent with acute appendicitis. No evidence of appendiceal perforation. 2. Mild hepatic steatosis. Critical results were called by Dr. Lay Dawkins to Ashia Kramer At 09/05/2021 6:50 PM EDT. Electronically authenticated by: LAY DAWKINS Date: 2021-09-05 18:54 Normal [facility] CULTURE BLOODon 09-05-2021 Microscopic examination of blood, culture Culture Observations: No growth at 5 days. Normal [facility] Comment on above: Performed By: #### TEMO LOPEZ #### [facility] [address] [place] [address] Dr. Irina Lopez Microscopic examination of blood, culture Culture Observations: No growth at 5 days. Normal [facility] Comment on above: Performed By: #### L TEMO KEMP #### [facility] [address] [place] [address] Dr. Irina Lopez Covid-19 PCR ([facility])on 08-27 SARS-CoV-2 (COVID-19) RNA HASEEB+probe Ql (Unsp spec) Not detected Normal NOT DETECTED [facility] Comment on above: Result Comment: When diagnostic testing is negative, the possibility of a false negative should be considered in the context of a patient's recent exposures and the presence of clinical signs and symptoms consistent with SARS-CoV-2. This test is not yet approved or cleared by the [place] FDA. When there are no FDA-approved or cleared tests available, and other criteria are met, FDA can make tests available under an emergency access mechanism called an Emergency Use Authorization (EUA). The EUA for this test is supported by the [place] of Health and Human Service's declaration that circumstances exist to justify the emergency use of in vitro diagnostics for the detection and/or diagnosis of the virus that causes COVID-19. This EUA will remain in effect for the duration of the COVID-19 declaration justifying emergency of IVDs, unless it is terminated or revoked by the FDA (after which the test may no longer be used). Performed By: #### L TEMO KEPM #### [facility] [address] [place] [address] Dr. Irina Lopez ER URINE PROFILEon 2 Bilirubin Ql (U) Negative Normal NEGATIVE [facility] Comment on above: Performed By: #### U MICRO, ERUR #### [facility] [address] [place] [address] Dr. Irina Lopez Clarity (U) CLEAR Normal CLEAR [facility] Comment on above: Performed By: #### U MICRO, ERUR #### [facility] [address] [place] [address] Dr. Irina Lopez Color (U) YELLOW Normal YELLOW [facility] Comment on above: Performed By: #### U MICRO, ERUR #### [facility] [address] [address] [address] Irina VELASQUEZ A micrscopic examination will be performed if indicated. Normal [facility] Comment on above: Performed By: #### U MICRO, ERUR #### [facility] [address] [place] [address] Dr. Irina Lopez Glucose Ql (U) Negative Normal NEGATIVE [facility] Comment on above: Performed By: #### U MICRO, ERUR #### [facility] [address] [address] [address] Irina Lopez Hemoglobin Ql (U) TRACE-LYSED Abnormal NEGATIVE [facility] Comment on above: Performed By: #### U MICRO, ERUR #### [facility] [address] [place] [address] Dr. Irina Lopez Ketones Ql (U) TRACE Abnormal NEGATIVE [facility] Comment on above: Performed By: #### U MICRO, ERUR #### [facility] [address] [place] [address] Dr. Irina Lopez LEUKOCYTES SMALL Abnormal NEGATIVE [facility] Comment on above: Performed By: #### U MICRO, ERUR #### [facility] [address] [place] [address] Dr. Irina Lopez Nitrite Ql (U) Negative Normal NEGATIVE [facility] Comment on above: Performed By: #### U MICRO, ERUR #### [facility] [address] [address] [address] Irina Lopez pH (U) 6.5 [pH] Normal 5-9 [facility] Comment on above: Performed By: #### U MICRO, ERUR #### [facility] [address] [place] [address] Dr. Irina Lopez SPEC GRAVITY 1.005 Normal 1.005-<=1.02 5 [facility] Comment on above: Performed By: #### U MICRO, ERUR #### [facility] [address] [place] [address] Dr. Irina Lopez UA PROTEIN Negative Normal NEGATIVE/ TRACE [facility] Comment on above: Performed By: #### U MICRO, ERUR #### [facility] [address] [place] [address] Dr. Irina Lopez UR MICRO IND INDICATED Normal [facility] Comment on above: Performed By: #### U MICRO, ERUR #### [facility] [address] [place] [address] Dr. Irina Lopez Urobilinogen Qn (U) 2.0 {Roz'U}/dL Abnormal 0.2 - 1. 0 [facility] Comment on above: Performed By: #### U MICRO, ERUR #### [facility] [address] [place] [address] Dr. Irina Lopez LACTATE/LACTIC ACIDon 2021 Lactate [Moles/Vol] 0.6 mmol/L Normal 0.4-1.9 [facility] Comment on above: Performed By: #### L ACT #### [facility] [address] [place] [address] Dr. Irina Lopez LIPASEon 09-05-2021 Lipase [Catalytic activity/Vol] 28.0 U/L Critically low 73.0-393.0 [facility] Comment on above: Performed By: #### TEMO LOPEZ #### [facility] [address] [place] [address] Dr. Irina Lopez URon 09-05-2021 , QUAL Negative Normal NEGATIVE [facility] Comment on above: Performed By: #### TEMO LOPEZ #### [facility] [address] [place] [address] Dr. Irina Lopez PROF 14(COMP METB)on 022 Albumin [Mass/Vol] 3.8 g/dL Normal 3.4-5.0 [facility] Comment on above: Performed By: #### TEMO LOPEZ #### [facility] [address] [place] [address] Dr. Irina Lopez Albumin/Globulin [Mass ratio] 0.9 {ratio} Normal [facility] Comment on above: Performed By: #### L VIRIDIANA, CREA #### [facility] [address] [address] [address] Irina Lopez ALP [Catalytic activity/Vol] 113 U/L Normal 46-116 [facility] Comment on above: Performed By: #### L IVGRICEL, CREA #### [facility] [address] [address] [address] Irina Lopez ALT [Catalytic activity/Vol] 38 U/L Normal 14-59 [facility] Comment on above: Performed By: #### L VIRIDIANA, CREA #### [facility] [address] [address] [address] Irina Lopez Anion gap [Moles/Vol] 12.3 mmol/L Normal [facility] Comment on above: Performed By: #### L VIRIDIANA CREA #### [facility] [address] [place] [address] Dr. Irina Lopez AST [Catalytic activity/Vol] 36 U/L Normal 15-37 [facility] Comment on above: Performed By: #### L VIRIDIANA CREA #### [facility] [address] [address] [address] Irina Lopez Bilirubin [Mass/Vol] 1.1 mg/dL Critically high 0.2-1.0 [facility] Comment on above: Performed By: #### L VIRIDIANA CREA #### [facility] [address] [address] [address] Irina Lopez Calcium [Mass/Vol] 9.8 mg/dL Normal 8.5-10.1 [facility] Comment on above: Performed By: #### L VIRIDIANA CREA #### [facility] [address] [address] [address] Irina Lopez Chloride [Moles/Vol] 101 mmol/L Normal 98-107 [facility] Comment on above: Performed By: #### L VIRIDIANA, CREA #### [facility] [address] [address] [address] Irina Lopez CO2 [Moles/Vol] 27.3 mmol/L Normal 21.0-32.0 [facility] Comment on above: Performed By: #### L IVGRICEL CREA #### [facility] [address] [place] [address] Dr. Irina Lopez Creatinine [Mass/Vol] 0.97 mg/dL Normal 0.55-1.02 [facility] Comment on above: Performed By: #### L IVGRICEL CREA #### [facility] [address] [place] [address] Dr. Irina Lopez EGFR-AF IRISH >60 Normal >=60 [facility] Comment on above: Performed By: #### L IVGRICEL CREA #### [facility] [address] [place] [address] Dr. Irina Lopez EGFR-NON AF IRISH 59 mL/min/1.73m2 Critically low >=60 [facility] Comment on above: Performed By: #### L VIRIDIANA CREA #### [facility] [address] [place] [address] Dr. Irina Lopez Globulin (S) [Mass/Vol] 4.1 g/dL Normal [facility] Comment on above: Performed By: #### L VIRIDIANA CREA #### [facility] [address] [place] [address] Dr. Irina Lopez Glucose [Mass/Vol] 141 mg/dL Critically high 74-106 [facility] Comment on above: Performed By: #### L VIRIDIANA CREA #### [facility] [address] [place] [address] Dr. Irina Lopez Potassium [Moles/Vol] 3.6 mmol/L Normal 3.5-5.1 [facility] Comment on above: Performed By: #### L IVGRICEL CREA #### [facility] [address] [place] [address] Dr. Irina Lopez Protein [Mass/Vol] 7.9 g/dL Normal 6.4-8.2 [facility] Comment on above: Performed By: #### L IVGRICEL CREA #### [facility] [address] [place] [address] Dr. Irina Lopez Sodium [Moles/Vol] 137 mmol/L Normal 136-145 [facility] Comment on above: Performed By: #### TMEO LOPEZ #### [facility] [address] [place] [address] Dr. Irina Lopez Urea nitrogen [Mass/Vol] 13.0 mg/dL Normal 7.0-18.0 [facility] Comment on above: Performed By: #### TEMO LOPEZ #### [facility] [address] [place] [address] Dr. Irina Lopez Urea nitrogen/Creatinine [Mass ratio] 13.4 mg/mg Normal [facility] Comment on above: Performed By: #### TEMO LOPEZ #### [facility] [address] [place] [address] Dr. Irina Lopez PROTIMEon 09-05-2021 INR Coag (PPP) [Relative time] 1.06 {INR} Normal [facility] Comment on above: Performed By: #### TEMO LOPEZ #### [facility] [address] [place] [address] Dr. Irina Lopez INR GUIDELINES SEE BELOW Normal [facility] Comment on above: Result Comment: ALIX RED INR: 2.0 - 3.0 CONDITIONS NOT LISTED BELOW 2.5 - 3.5 FOR PROSTHETIC HEART VALVE REPLACEMENT 2.5 - 3.5 RECURRENT THROMBOSIS Performed By: #### TEMO LOPEZ #### [facility] [address] [place] [address] Dr. Irina Lopez PT Coag (PPP) [Time] 11.4 s Normal 9.0-11.6 [facility] Comment on above: Performed By: #### TEMO LOPEZ #### [facility] [address] [place] [address] Dr. Irina Lopez PTTon 09-05-2021 aPTT Coag (Bld) [Time] 25.9 s Normal 22.3-36.2 [facility] Comment on above: Performed By: #### TEMO LOPEZ #### [facility] [address] [place] [address] Dr. Irina Lopez URINE MICROSCOPIC ONLYon BACTERIA NONE SEEN Normal NONE SEEN [facility] Comment on above: Performed By: #### U MICRO, ERUR #### [facility] [address] [place] [address] Dr. Irina Lopez Bacteria identified Cx Nom (U) NOT INDICATED Normal [facility] Comment on above: Performed By: #### U MICRO, ERUR #### [facility] [address] [place] [address] Dr. Irina Lopez CAST NONE SEEN Normal NONE SEEN [facility] Comment on above: Performed By: #### U MICRO, ERUR #### [facility] [address] [place] [address] Dr. Irina Lopez Crystals LM Nom (Urine sed) NONE SEEN Normal NONE SEEN [facility] Comment on above: Performed By: #### U MICRO, ERUR #### [facility] [address] [place] [address] Dr. Irina Lopez Epithelial cells LM Ql (Urine sed) FEW Abnormal NONE SEEN /RARE [facility] Comment on above: Performed By: #### U MICRO, ERUR #### [facility] [address] [place] [address] Dr. Irina Lopez MUCOUS NONE SEEN Normal NONE SEEN [facility] Comment on above: Performed By: #### U MICRO, ERUR #### [facility] [address] [place] [address] Dr. Irina Lopez RBC 0-2 Normal 0-2 [facility] Comment on above: Performed By: #### U MICRO, ERUR #### [facility] [address] [place] [address] Dr. Irina Lopez WBC 2-5 Abnormal NONE SEEN [facility] Comment on above: Performed By: #### U MICRO, ERUR #### [facility] [address] [place] [address] Dr. Irina Lopez CBC (INCLUDES DIFF/PLT)on Basophils (Bld) [#/Vol] 0.107 10*3/uL Normal 0-200 [facility] Comment on above: Performed By: #### 1 [id number], [id number], 80, [id number] #### [facility] [address], [address] [place] [address] Software Validation Engineer: David Marlow MD Basophils/100 WBC (Bld) 1.1 % Normal [facility] Comment on above: Performed By: #### 1 0256, , 809, 6399 #### [facility] [facility] [address] [address] , [address] [place] [address] Software Validation Engineer: David Marlow MD Eosinophils (Bld) [#/Vol] 0.175 10*3/uL Normal 15-500 [facility] Comment on above: Performed By: #### 1 255, , 80, 6399 #### [facility] [facility] [address], [address] [place] [address] Software Validation Engineer: David Marlow MD Eosinophils/100 WBC (Bld) 1.8 % Normal [facility] Comment on above: Performed By: #### 1 255, , 80, 6399 #### [facility] [address] [address] , [address] [place] [address] Software Validation Engineer: David Marlow MD Erythrocyte distribution width (RBC) [Ratio] 15.4 % High 11.0-15.0 [facility] Comment on above: Performed By: #### 1 0256, , 80, 6399 #### [facility] [facility] [address] [address] , [address] [place] [address] Software Validation Engineer: David Marlow MD Hematocrit (Bld) [Volume fraction] 47.5 % High 35.0-45.0 [facility] Comment on above: Performed By: #### 1 0256, , 809, 6399 #### [facility] [address], [address] [place] [address] Software Validation Engineer: David Marlow MD Hemoglobin (Bld) [Mass/Vol] 15.1 g/dL Normal 11.7-15.5 [facility] Comment on above: Performed By: #### 1 025, , 809, 6399 #### [facility] [facility] [address], [address] [place] [address] Software Validation Engineer: David Marlow MD Lymphocytes (Bld) [#/Vol] 4.85 10*3/uL High 850-3900 [facility] Comment on above: Performed By: #### 1 0256, 18097, 809, 6399 #### [facility] [facility] [address], [address] [place] [address] Software Validation Engineer: David Marlow MD Lymphocytes/100 WBC (Bld) 50.0 % Normal [facility] Comment on above: Performed By: #### 1 0256, , 809, 6399 #### [facility] [address] [place] , [address] [place] [address] Software Validation Engineer: David Marlow MD MCH (RBC) [Entitic mass] 28.5 pg Normal 27.0-33.0 [facility] Comment on above: Performed By: #### 1 0256, , 809, 6399 #### [facility] [address], [address] [place] [address] Software Validation Engineer: David Marlow MD MCHC (RBC) [Mass/Vol] 31.8 g/dL Low 32.0-36.[address] [facility] Comment on above: Performed By: #### 1 0256, , 809, 6399 #### [facility] [address], [address] [place] [address] Software Validation Engineer: David Marlow MD MCV (RBC) [Entitic vol] 89.8 fL Normal 80.0-100.0 [facility] Comment on above: Performed By: #### 1 0256, , 809, 6399 #### [facility] [address], [address] [place] [address] Software Validation Engineer: David Marlow MD Monocytes (Bld) [#/Vol] 0.66 10*3/uL Normal 200-950 [facility] Comment on above: Performed By: #### 1 0256, , 809, 6399 #### [facility] [address], [address] [place] [address] Software Validation Engineer: David Marlow MD Monocytes/100 WBC (Bld) 6.8 % Normal [facility] Comment on above: Performed By: #### 1 0256, 63684, 809, 6399 #### [facility] [address], [address] [place] [address] Software Validation Engineer: David Marlow MD Neutrophils (Bld) [#/Vol] 3.909 10*3/uL Normal 9554-2980 [facility] Comment on above: Performed By: #### 1 0256, , 809, 6399 #### [facility] [address], [address] [place] [address] Software Validation Engineer: David Marlow MD Neutrophils/100 WBC (Bld) 40.3 % Normal [facility] Comment on above: Performed By: #### 1 0256, , 809, 6399 #### [facility] [address], [address] [place] [address] Software Validation Engineer: David Marlow MD Platelet mean volume (Bld) [Entitic vol] 10.6 fL Normal 7.5-12.5 [facility] Comment on above: Performed By: #### 1 0256, , 809, 6399 #### [facility] [address], [address] [place] [address] Software Validation Engineer: David Marlow MD Platelets (Bld) [#/Vol] 297 10*3/uL Normal 140-400 [facility] Comment on above: Performed By: #### 1 0256, , 809, 6399 #### [facility] [address], [address] [place] [address] Software Validation Engineer: David Marlow MD RBC (Bld) [#/Vol] 5.29 10*6/uL High 3.80-5.10 [facility] Comment on above: Performed By: #### 1 0256, , 809, 6399 #### [facility] [address], [address] [place] [address] Software Validation Engineer: David Marlow MD WBC (Bld) [#/Vol] 9.7 10*3/uL Normal 3.8-10.8 [facility] Comment on above: Performed By: #### 1 0256, , 80, 6399 #### [facility], [address] [place] [address] Software Validation Engineer: David Marlow MD CREATININE W/O eGFRon 2019 Creatinine [Mass/Vol] 0.90 mg/dL Normal 0.50-1.05 [facility] Comment on above: Result Comment: For patients >49 years of age, the reference limit for Creatinine is approximately 13% higher for people identified as -[place]. Performed By: #### 1 255, , 80, 6399 #### [facility], [address] [place] [address] Software Validation Engineer: David Marlow MD HEPATIC FUNCTION PANELon Albumin [Mass/Vol] 4.4 g/dL Normal 3.6-5.1 [facility] Comment on above: Order Comment: FASTI NG:YES FASTING: YES Performed By: #### 1 6, , 80, 6399 #### [facility], [address] [place] [address] Software Validation Engineer: David Marlow MD Albumin/Globulin [Mass ratio] 1.4 (calc) Normal 1.0-2.5 [facility] Comment on above: Order Comment: FASTI NG:YES FASTING: YES Performed By: #### 1 6, , 80, 6399 #### [facility], [address] [place] [address] Software Validation Engineer: David Marlow MD ALP [Catalytic activity/Vol] 67 U/L Normal 37-153 [facility] Comment on above: Order Comment: FASTI NG:YES FASTING: YES Performed By: #### 1 0256, , 80, 6399 #### [facility], [address] [place] [address] Software Validation Engineer: David Marlow MD ALT [Catalytic activity/Vol] 13 U/L Normal 6-29 [facility] Comment on above: Order Comment: FASTI NG:YES FASTING: YES Performed By: #### 1 0256, , 809, 6399 #### [facility], [address] [place] [address] Software Validation Engineer: David Marlow MD AST [Catalytic activity/Vol] 15 U/L Normal 10-35 [facility] Comment on above: Order Comment: FASTI NG:YES FASTING: YES Performed By: #### 1 0256, , 809, 6399 #### [facility], [address] [place] [address] Software Validation Engineer: David Marlow MD Bilirubin [Mass/Vol] 0.7 mg/dL Normal 0.2-1.2 [facility] Comment on above: Order Comment: FASTI NG:YES FASTING: YES Performed By: #### 1 255, , 80, 6399 #### [facility], [address] [place] [address] Software Validation Engineer: David Marlow MD BILIRUBIN, INDIRECT 0.6 mg/dL (calc) Normal 0.2-1.2 [facility] Comment on above: Order Comment: FASTI NG:YES FASTING: YES Performed By: #### 1 0256, , 809, 6399 #### [facility], [address] [place] [address] Software Validation Engineer: David Marlow MD Bilirubin.direct [Mass/Vol] 0.1 mg/dL Normal < OR = 0.2 [facility] Comment on above: Order Comment: FASTI NG:YES FASTING: YES Performed By: #### 1 0256, , 809, 6399 #### [facility], [address] [place] [address] Software Validation Engineer: David Marlow MD Globulin (S) [Mass/Vol] 3.2 g/dL (calc) Normal 1.9-3.7 [facility] Comment on above: Order Comment: FASTI NG:YES FASTING: YES Performed By: #### 1 025, , 80, 6399 #### [facility], [address] [place] [address] Software Validation Engineer: David Marlow MD Protein [Mass/Vol] 7.6 g/dL Normal 6.1-8.1 [facility] Comment on above: Order Comment: FASTI NG:YES FASTING: YES Performed By: #### 1 6, , 80, 6399 #### [facility], [address] [place] [address] Software Validation Engineer: David Marlow MD SED RATE BY MODIFIED WESTERG RENon 01-11-2020 SED RATE BY MODIFIED WESTERGREN 14 mm/h Normal < OR = 30 [facility] Comment on above: Performed By: #### 1 255, , 80, 6399 #### [facility], [address] [place] [address] Software Validation Engineer: David Marlow MD CBC (INCLUDES DIFF/PLT)on Basophils (Bld) [#/Vol] 0.077 10*3/uL Normal 0-200 [facility] Comment on above: Performed By: #### 1 255, , 80, 6399 #### [facility] [address] Software Validation Engineer: David Marlow MD Basophils/100 WBC (Bld) 1.2 % Normal [facility] Comment on above: Performed By: #### 1 255, , 80, 6399 #### [facility] [address] Software Validation Engineer: David Marlow MD Eosinophils (Bld) [#/Vol] 0.166 10*3/uL Normal 15-500 [facility] Comment on above: Performed By: #### 1 255, , 80, 6399 #### [facility], [address] [place] [address] Software Validation Engineer: David Marlow MD Eosinophils/100 WBC (Bld) 2.6 % Normal [facility] Comment on above: Performed By: #### 1 0256, , 80, 6399 #### [facility] [address] [place] , [address] [place] [address] Software Validation Engineer: David Marlow MD Erythrocyte distribution width (RBC) [Ratio] 14.4 % Normal 11.0-15.0 [facility] Comment on above: Performed By: #### 1 6, , 80, 6399 #### [facility] [address] [place] , [address] [place] [address] Software Validation Engineer: David Marlow MD Hematocrit (Bld) [Volume fraction] 41.0 % Normal 35.0-45.0 [facility] Comment on above: Performed By: #### 1 255, , 80, 6399 #### [facility] [address] [place] , [address] [place] [address] Software Validation Engineer: David Marlow MD Hemoglobin (Bld) [Mass/Vol] 13.1 g/dL Normal 11.7-15.5 [facility] Comment on above: Performed By: #### 1 255, , 80, 6399 #### [facility] [address] [place] [address] Software Validation Engineer: David Marlow MD Lymphocytes (Bld) [#/Vol] 1.978 10*3/uL Normal 850-3900 [facility] Comment on above: Performed By: #### 1 255, , 80, 6399 #### [facility] [address] [place] [address] Software Validation Engineer: David Marlow MD Lymphocytes/100 WBC (Bld) 30.9 % Normal [facility] Comment on above: Performed By: #### 1 255, , 80, 6399 #### [facility] [address] [place] , [address] [place] [address] Software Validation Engineer: David Marlow MD MCH (RBC) [Entitic mass] 28.1 pg Normal 27.0-33.0 [facility] Comment on above: Performed By: #### 1 255, , 80, 6399 #### [facility] [address], [address] [place] [address] Software Validation Engineer: David Marlow MD MCHC (RBC) [Mass/Vol] 32.0 g/dL Normal 32.0-36.[address] [facility] Comment on above: Performed By: #### 1 0256, , 809, 6399 #### [facility] [address], [address] [place] [address] Software Validation Engineer: David Marlow MD MCV (RBC) [Entitic vol] 87.8 fL Normal 80.0-100.0 [facility] Comment on above: Performed By: #### 1 0256, , 80, 6399 #### [facility] [address], [address] [place] [address] Software Validation Engineer: David Marlow MD Monocytes (Bld) [#/Vol] 0.416 10*3/uL Normal 200-950 [facility] Comment on above: Performed By: #### 1 0256, , 80, 6399 #### [facility] [address], [address] [place] [address] Software Validation Engineer: David Marlow MD Monocytes/100 WBC (Bld) 6.5 % Normal [facility] Comment on above: Performed By: #### 1 0256, , 809, 6399 #### [facility] [address], [address] [place] [address] Software Validation Engineer: David Marlow MD Neutrophils (Bld) [#/Vol] 3.763 10*3/uL Normal 6540-3618 [facility] Comment on above: Performed By: #### 1 0256, , 809, 6399 #### [facility] [address], [address] [place] [address] Software Validation Engineer: David Marlow MD Neutrophils/100 WBC (Bld) 58.8 % Normal [facility] Comment on above: Performed By: #### 1 0256, , 809, 6399 #### [facility] [address], [address] [place] [address] Software Validation Engineer: David Marlow MD Platelet mean volume (Bld) [Entitic vol] 9.9 fL Normal 7.5-12.5 [facility] Comment on above: Performed By: #### 1 0256, , 809, 6399 #### [facility] [address], [address] [place] [address] Software Validation Engineer: David Marlow MD Platelets (Bld) [#/Vol] 355 10*3/uL Normal 140-400 [facility] Comment on above: Performed By: #### 1 0256, , 80, 6399 #### [facility] [address], [address] [place] [address] Software Validation Engineer: David Marlow MD RBC (Bld) [#/Vol] 4.67 10*6/uL Normal 3.80-5.10 [facility] Comment on above: Performed By: #### 1 6, , 80, 6399 #### [facility] [address], [address] [place] [address] Software Validation Engineer: David Marlow MD WBC (Bld) [#/Vol] 6.4 10*3/uL Normal 3.8-10.8 [facility] Comment on above: Performed By: #### 1 0256, , 80, 6399 #### [facility] [address], [address] [place] [address] Software Validation Engineer: David Marlow MD CREATININE W/O eGFRon 2019 Creatinine [Mass/Vol] 0.75 mg/dL Normal 0.50-1.05 [facility] Comment on above: Result Comment: For patients >49 years of age, the reference limit for Creatinine is approximately 13% higher for people identified as -[place]. Performed By: #### 1 0256, , 809, 6399 #### [facility] [address], [address] [place] [address] Software Validation Engineer: David Marlow MD HEPATIC FUNCTION PANELon Albumin [Mass/Vol] 4.1 g/dL Normal 3.6-5.1 [facility] Comment on above: Order Comment: FASTI NG:YES FASTING: YES Performed By: #### 1 0256, 85864, 809, 6399 #### [facility], [address] [place] [address] Software Validation Engineer: David Marlow MD Albumin/Globulin [Mass ratio] 1.4 (calc) Normal 1.0-2.5 [facility] Comment on above: Order Comment: FASTI NG:YES FASTING: YES Performed By: #### 1 0256, , 809, 6399 #### [facility], [address] [place] [address] Software Validation Engineer: David Marlow MD ALP [Catalytic activity/Vol] 75 U/L Normal 37-153 [facility] Comment on above: Order Comment: FASTI NG:YES FASTING: YES Performed By: #### 1 0256, , 809, 6399 #### [facility], [address] [place] [address] Software Validation Engineer: David Marlow MD ALT [Catalytic activity/Vol] 11 U/L Normal 6-29 [facility] Comment on above: Order Comment: FASTI NG:YES FASTING: YES Performed By: #### 1 0256, , 809, 6399 #### [facility], [address] [place] [address] Software Validation Engineer: David Marlow MD AST [Catalytic activity/Vol] 16 U/L Normal 10-35 [facility] Comment on above: Order Comment: FASTI NG:YES FASTING: YES Performed By: #### 1 0256, 77381, 809, 6399 #### [facility], [address] [place] [address] Software Validation Engineer: David Marlow MD Bilirubin [Mass/Vol] 0.4 mg/dL Normal 0.2-1.2 [facility] Comment on above: Order Comment: FASTI NG:YES FASTING: YES Performed By: #### 1 0256, , 809, 6399 #### [facility] [address] , [address] [place] [address] Software Validation Engineer: David Marlow MD BILIRUBIN, INDIRECT 0.3 mg/dL (calc) Normal 0.2-1.2 [facility] Comment on above: Order Comment: FASTI NG:YES FASTING: YES Performed By: #### 1 0256, , 809, 6399 #### [facility] [address] [place] , [address] [place] [address] Software Validation Engineer: David Marlow MD Bilirubin.direct [Mass/Vol] 0.1 mg/dL Normal < OR = 0.2 [facility] Comment on above: Order Comment: FASTI NG:YES FASTING: YES Performed By: #### 1 0256, , 80, 6399 #### [facility] [address], [address] [place] [address] Software Validation Engineer: David Marlow MD Globulin (S) [Mass/Vol] 2.9 g/dL (calc) Normal 1.9-3.7 [facility] Comment on above: Order Comment: FASTI NG:YES FASTING: YES Performed By: #### 1 0256, , 80, 6399 #### [facility] [address] [place] , [address] [place] [address] Software Validation Engineer: David Marlow MD Protein [Mass/Vol] 7.0 g/dL Normal 6.1-8.1 [facility] Comment on above: Order Comment: FASTI NG:YES FASTING: YES Performed By: #### 1 0256, , 80, 6399 #### [facility] [address] [place] , [address] [place] [address] Software Validation Engineer: David Marlow MD SED RATE BY KENNY Maldonado 11-02-2019 SED RATE BY KENNY JAUREGUI 38 mm/h High < OR = 30 [facility] Comment on above: Performed By: #### 1 0256, , 80, 6399 #### [facility] [address], [address] [place] [address] Software Validation Engineer: David Marlow MD CBC (INCLUDES DIFF/PLT)on Basophils (Bld) [#/Vol] 0.062 10*3/uL Normal 0-200 [facility] Comment on above: Performed By: #### 1 025, , 80, 6399 #### [facility] [address] [place] , [address] [place] [address] Software Validation Engineer: David Marlow MD Basophils/100 WBC (Bld) 1.2 % Normal [facility] Comment on above: Performed By: #### 1 0256, , 80, 6399 #### [facility] [address] [place] , [address] [place] [address] Software Validation Engineer: David Marlow MD Eosinophils (Bld) [#/Vol] 0.151 10*3/uL Normal 15-500 [facility] Comment on above: Performed By: #### 1 255, , 80, 6399 #### [facility] [address] [place] , [address] [place] [address] Software Validation Engineer: David Marlow MD Eosinophils/100 WBC (Bld) 2.9 % Normal [facility] Comment on above: Performed By: #### 1 255, , 80, 6399 #### [facility] [address] [place] , [address] [place] [address] Software Validation Engineer: David Marlow MD Erythrocyte distribution width (RBC) [Ratio] 15.7 % High 11.0-15.0 [facility] Comment on above: Performed By: #### 1 255, , 80, 6399 #### [facility] [address] [place] , [address] [place] [address] Software Validation Engineer: David Marlow MD Hematocrit (Bld) [Volume fraction] 41.9 % Normal 35.0-45.0 [facility] Comment on above: Performed By: #### 1 255, , 80, 6399 #### [facility] [address] [place] , [address] [place] [address] Software Validation Engineer: David Marlow MD Hemoglobin (Bld) [Mass/Vol] 13.5 g/dL Normal 11.7-15.5 [facility] Comment on above: Performed By: #### 1 255, , 80, 6399 #### [facility] [address] [place] , [address] [place] [address] Software Validation Engineer: David Marlow MD Lymphocytes (Bld) [#/Vol] 1.929 10*3/uL Normal 850-3900 [facility] Comment on above: Performed By: #### 1 255, , 80, 6399 #### [facility] [address] [place] , [address] [place] [address] Software Validation Engineer: David Marlow MD Lymphocytes/100 WBC (Bld) 37.1 % Normal [facility] Comment on above: Performed By: #### 1 255, , 80, 6399 #### [facility], [address] [place] [address] Software Validation Engineer: David Marlow MD MCH (RBC) [Entitic mass] 27.6 pg Normal 27.0-33.0 [facility] Comment on above: Performed By: #### 1 255, , 80, 6399 #### [facility] [address] [place] [address] Software Validation Engineer: David Marlow MD MCHC (RBC) [Mass/Vol] 32.2 g/dL Normal 32.0-36.0 [facility] Comment on above: Performed By: #### 1 255, , 80, 6399 #### [facility] [address] [place] , [address] [place] [address] Software Validation Engineer: David Marlow MD MCV (RBC) [Entitic vol] 85.7 fL Normal 80.0-100.0 [facility] Comment on above: Performed By: #### 1 255, , 80, 6399 #### [facility] [address] [place] , [address] [place] [address] Software Validation Engineer: David Marlow MD Monocytes (Bld) [#/Vol] 0.322 10*3/uL Normal 200-950 [facility] Comment on above: Performed By: #### 1 0256, 38693, 809, 6399 #### [facility], [address] [place] [address] Software Validation Engineer: David Marlow MD Monocytes/100 WBC (Bld) 6.2 % Normal [facility] Comment on above: Performed By: #### 1 0256, , 809, 6399 #### [facility], [address] [place] [address] Software Validation Engineer: David Marlow MD Neutrophils (Bld) [#/Vol] 2.735 10*3/uL Normal 0729-6563 [facility] Comment on above: Performed By: #### 1 0256, , 809, 6399 #### [facility], [address] [place] [address] Software Validation Engineer: David Marlow MD Neutrophils/100 WBC (Bld) 52.6 % Normal [facility] Comment on above: Performed By: #### 1 0256, , 809, 6399 #### [facility] [address] Software Validation Engineer: David Marlow MD Platelet mean volume (Bld) [Entitic vol] 10.2 fL Normal 7.5-12.5 [facility] Comment on above: Performed By: #### 1 0256, , 809, 6399 #### [facility] [address] Software Validation Engineer: David Marlow MD Platelets (Bld) [#/Vol] 280 10*3/uL Normal 140-400 [facility] Comment on above: Performed By: #### 1 0256, , 809, 6399 #### [facility] [address] [place] , [address] [place] [address] Software Validation Engineer: David Marlow MD RBC (Bld) [#/Vol] 4.89 10*6/uL Normal 3.80-5.10 [facility] Comment on above: Performed By: #### 1 0256, 43449, 809, 6399 #### [facility], [address] [place] [address] Software Validation Engineer: David Marlow MD WBC (Bld) [#/Vol] 5.2 10*3/uL Normal 3.8-10.8 [facility] Comment on above: Performed By: #### 1 0256, , 809, 6399 #### [facility], [address] [place] [address] Software Validation Engineer: David Marlow MD CREATININE W/O eGFRon 2019 Creatinine [Mass/Vol] 0.72 mg/dL Normal 0.50-1.05 [facility] [place] Comment on above: Result Comment: For patients >49 years of age, the reference limit for Creatinine is approximately 13% higher for people identified as -[place]. Performed By: #### 1 0256, , 809, 6399 #### [facility], [address] [place] [address] Software Validation Engineer: David Marlow MD HEPATIC FUNCTION PANELon Albumin [Mass/Vol] 4.2 g/dL Normal 3.6-5.1 [facility] Comment on above: Order Comment: FASTI NG:NO FASTING: NO Performed By: #### 1 0256, , 809, 6399 #### [facility], [address] [place] [address] Software Validation Engineer: David Malrow MD Albumin/Globulin [Mass ratio] 1.4 (calc) Normal 1.0-2.5 [facility] Comment on above: Order Comment: FASTI NG:NO FASTING: NO Performed By: #### 1 0256, 49474, 809, 6399 #### [facility], [address] [place] [address] Software Validation Engineer: David Marlow MD ALP [Catalytic activity/Vol] 87 U/L Normal 37-153 [facility] Comment on above: Order Comment: FASTI NG:NO FASTING: NO Performed By: #### 1 0256, , 809, 6399 #### [facility], [address] [place] [address] Software Validation Engineer: David Marlow MD ALT [Catalytic activity/Vol] 15 U/L Normal 6-29 [facility] Comment on above: Order Comment: FASTI NG:NO FASTING: NO Performed By: #### 1 0256, , 809, 6399 #### [facility], [address] [place] [address] Software Validation Engineer: David Marlow MD AST [Catalytic activity/Vol] 18 U/L Normal 10-35 [facility] Comment on above: Order Comment: FASTI NG:NO FASTING: NO Performed By: #### 1 0256, , 809, 6399 #### [facility], [address] [place] [address] Software Validation Engineer: David Marlow MD Bilirubin [Mass/Vol] 0.7 mg/dL Normal 0.2-1.2 [facility] Comment on above: Order Comment: FASTI NG:NO FASTING: NO Performed By: #### 1 0256, , 809, 6399 #### [facility], [address] [place] [address] Software Validation Engineer: David Marlow MD BILIRUBIN, INDIRECT 0.6 mg/dL (calc) Normal 0.2-1.2 [facility] Comment on above: Order Comment: FASTI NG:NO FASTING: NO Performed By: #### 1 0256, , 809, 6399 #### [facility], [address] [place] [address] Software Validation Engineer: David Marlow MD Bilirubin.direct [Mass/Vol] 0.1 mg/dL Normal < OR = 0.2 [facility] Comment on above: Order Comment: FASTI NG:NO FASTING: NO Performed By: #### 1 0256, , 809, 6399 #### [facility], [address] [place] [address] Software Validation Engineer: David Marlow MD Globulin (S) [Mass/Vol] 2.9 g/dL (calc) Normal 1.9-3.7 [facility] Comment on above: Order Comment: FASTI NG:NO FASTING: NO Performed By: #### 1 0256, 18396, 809, 6399 #### [facility], [address] [place] [address] Software Validation Engineer: David Marlow MD Protein [Mass/Vol] 7.1 g/dL Normal 6.1-8.1 [facility] Diagnostics Comment on above: Order Comment: FASTI NG:NO FASTING: NO Performed By: #### 1 [id number], [id number], [id number] #### [facility], [address] [place] [address] Software Validation Engineer: David Marlow MD SED RATE BY MODIFIED WESTERG RENon 06-01-2019 SED RATE BY MODIFIED WESTERGREN 25 mm/h Normal < OR = 30 [facility] Comment on above: Performed By: #### 1 6, , [id number], [id number] #### [facility], [address] [place] [address] Software Validation Engineer: David Marlow MD CYTOLOGYon 09-25-2016 CYTOLOGY Specimen #: [id number] Physician: TONIA HUFFMAN SUBMITTEDA: CERVICAL, SCREENING, FLUID ____FINAL DIAGNOSISA. CERVICAL, SCREENING, FLUIDSatisfactory for interpretation.Negati ve for intraepithelial lesion or malignancy.Acute inflammation.This specimen has been analyzed by the [employer] [facility] System, anautomated imaging and review system, which assists the laboratory inevaluating cells on ThinPrep Pap tests. Following automated imaging,selected palomo from every slide are reviewed by a lap welder.YOVANA Eagle(ASCP) (Electronic Signature) ____CLINICAL DATA PAP Source: Cervical-PFCERSLast menses 06/12? Menopause Date of Last Menstrual Period:06/12Clinical History:ROUTINEAdditi onal Testing:Reflex HPV testing for ASCUSSTAINSA: CERVICAL, SCREENING, FLUID THIN PREP GYNJennifer Miguel Pantoja, Laboratory DirectorPatient ID #: [id number] of Report: 10/05/2016Date of Procedure: 09/25/2016Date of Receipt: 09/28/2016Submitted by: TONIA LONGORIALocation: Diagnostic interpretation performed at [facility], [address] [place] [address].The Pap Smear is a screening test for cervical cancer. False negativeresults occur with all screening tests, emphasizing the need forrescreening at recommended intervals, and clinical correlation. Normal [facility] Comment on above: Performed By: #### C ####See report for performing lab information. Vital Signs Date Time Vital Sign Value Performing Clinician Brando fowler 01-07-2023 00:00-0400 Diastolic blood pressure 102 mm[Hg] Davelianna Stone [facility] 01-07-2023 00:00-0400 Heart rate 75 /min Yuridianina Stone [facility] 01-07-2023 00:00-0400 Mean blood pressure 123 mm[Hg] Davelianna Dojean claude [facility] 01-07-2023 00:00-0400 SaO2% (BldA) [Mass fraction] 97 % Davelianna Stone [facility] 01-07-2023 00:00-0400 Systolic blood pressure 165 mm[Hg] Davelianna Stone [facility] 01-06-2023 23:45-0400 Diastolic blood pressure 100 mm[Hg] Kaylinn Dokken [facility] 01-06-2023 23:45-0400 Systolic blood pressure 154 mm[Hg] Kaylinn Dokken [facility] 01-06-2023 23:30-0400 Diastolic blood pressure 104 mm[Hg] Kaylinn Dokken [facility] 01-06-2023 23:30-0400 Heart rate 71 /min Kaylinn Dokken [facility] 01-06-2023 23:30-0400 Mean blood pressure 127 mm[Hg] Kaylinn Dokken [facility] 01-06-2023 23:30-0400 SaO2% (BldA) [Mass fraction] 96 % Kaylinn Dokken [facility] 01-06-2023 23:30-0400 Systolic blood pressure 172 mm[Hg] Kaylinn Dokken [facility] 01-06-2023 23:00-0400 Heart rate 79 /min Kaylinn Dokken [facility] 01-06-2023 23:00-0400 SaO2% (BldA) [Mass fraction] 98 % Kaylinn Dokken [facility] 01-06-2023 21:30-0400 Heart rate 80 /min Kaylinn Dokken [facility] 01-06-2023 21:30-0400 Respiratory rate 18 /min Kaylinn Dokken [facility] 01-06-2023 20:09-0400 Body temperature 97.52 [degF] Kaylinn Dokken [facility] 01-06-2023 20:09-0400 Heart rate 102 /min Triston Stone [facility] 01-06-2023 20:09-0400 Respiratory rate 18 /min lianna Stone [facility] Encounters Encounter Date Encounter Type Care Provider Facility Start: 04-19-2024 End: 04-19-2024 Lab Drop off LEEANNE JEAN BAPTISTE [facility] Start: 04-19-2024 End: 04-19-2024 ambulatory Rona L Damaris Facility:[facility] Start: 04-12-2024 End: 04-12-2024 Lab Drop off Rona L Damaris [facility] Start: 04-12-2024 End: 04-12-2024 ambulatory Rona L Damaris Facility:[facility] Start: 02-28-2024 End: 02-28-2024 Lab Drop off Rona L Damaris [facility] Start: 02-28-2024 End: 02-28-2024 ambulatory Rona L Damaris Facility[facility] Start: 01-08-2023 End: 01-08-2023 Lab Drop off Rona L Damaris [facility] Start: 01-06-2023 End: 01-07-2023 Emergency department patient visit Triston Stone [facility] Start: 08-06-2022 End: 08-07-[address] LEEANNE JEAN BAPTISTE Facility:[facility] Start: 07-09-2022 End: 07-10-[address] LEEANNE JEAN BAPTISTE Facility:[facility] Start: 05-16-2022 End: 05-17-[address] LEEANNE JEAN BAPTISTE Facility:[facility] Start: 04-01-2022 End: 04-01-[address] DEBORAH AMADO . Facility:[facility] Start: 03-28-2022 Encounter for other preprocedural examination DR DEBORAH AMADO . [facility] Start: 03-28-2022 Encounter for preprocedural laboratory examination DR DEBORAH AMADO . [facility] Start: 03-25-2022 End: 03-26-[address] DEBORAH AMADO . Facility:[facility] Start: 03-25-2022 End: 03-26-2022 Encounter for preprocedural laboratory examination DR DEBORAH AMADO . Facility:[facility] Start: 02-08-2022 Encounter for genera l adult medical examination without abnormal findings DR TONIA LONGORIA . [facility] Start: 02-04-2022 End: 02-05-[address] TONIA LONGORIA . Facility:[facility] Start: 02-04-2022 End: 02-05-2022 Encounter for general adult medical examination without abnormal findings DR TONIA LONGORIA . Facility:[facility] Start: 11-25-2021 End: 11-25-[address] TONIA LONGORIA . Facility:[facility] Start: 10-24-2021 End: 10-24-[address] TONIA LONGORIA . Facility:[facility] Start: 09-17-2021 End: 09-18-[address] DEBORAH NATARAJAN . Facility:[facility] Start: 09-06-2021 End: 09-07-[address] DEBORAH NATARAJAN . Facility:[facility] Procedures Date Procedure Procedure Detail Performing Clinician Start: 02-04-2022 Colonoscopy Triston Alfonso Comment on above: normal Appendectomy Triston Stone section Triston suarez Drainage procedure Triston maguire Comment on above: for 10 days post edy endectomy, 7-10 days after that tube was removed another drainage tube was placed for one week. Immunizations Immunization Date Immunization Notes Care Provider Sharita durant 04-25-2021 SARS-CoV-2 (COVID-19 ) mRNA BNT-162b2 vax Triston Stone [facility] 04-02-2021 SARS-CoV-2 (COVID-19 ) mRNA BNT-162b2 vax Triston Stone [facility] NEGATED: Highlighted row has not occurred!06-23-2022 influenza virus vaccine, unspecified formulation Triston Stone [facility] Payers Date Payer Category Payer Unknown [id number] 2.16.84 [id number] 1965 Unknown [id number] 2.16.84 [id number] 1964 Unknown [id number] 2.16.84 [id number] 1964 Unknown [id number] 2.16.84 [id number] 1964 Unknown [id number] 2.16.84 [id number] 1964 Unknown [id number] 2.16.84 [id number] 1964 Unknown [id number] 2.16.84 [id number] 1964 Unknown [id number] 2.16.84 [id number] 1964 Unknown [id number] 2.16.84 [id number] 1964 Unknown [id number] 2.16.84 [id number] 1964 Unknown [id number] 2.16.8 [id number] 1964 Unknown [id number] 2.16.8 [id number] 1964 Unknown [id number] 2.16.8 40.1.480410.3.579.2.727 1964 Unknown [id number] 2.16.8 [id number] 1964 Unknown [id number] 2.16.8 [id number] 1964 Unknown [id number] 2.16.8 [id number] 1960 Private Health Insurance [id number] Social History Date Type Detail Facility Start: 06-23-2022 End: 02-28-2024 Tobacco smoking status Never smoked tobacco (finding) [facility] Tobacco smoking status Never [facility] Sex Assigned At Female [facility] Functional Status Date Assessment Result Facility 01-06-2023 Functional Status N/A [facility] Clinical Note 04-19-2024 Note Date & Type Note Facility 04-19-2024 Note Nurse Consultation [place] Reason for Visit pt came in for lab draw, Medications folic acid 1 mg Tab, 1 mg= 1 tab(s), Oral, Daily, Not taking: pt Rx has to get seen my the doctor refills hydroxychloroquine 200 mg Tab, 200 mg= 1 tab(s), Oral, Daily, Not taking: pt Rx has to get seen my the doctor refills methotrexate 2.5 mg Tab, 15 mg= 6 tab(s), Oral, qWeek, Not taking: pt Rx has to get seen my the doctor refills methotrexate 2.5 mg Tab, 2.5 mg= 1 tab(s), Oral, q7day, 2 refills, Not taking: pt Rx has to get seen my the doctor refills metoprolol tartrate 37.5 mg oral tablet, 37.5 mg= 1 tab(s), Oral, BID, 3 refills multivitamin Allergies No Known Allergies Immunizations Vaccine Date Status Comments influenza virus vaccine, inactivated - Not Given Patient Refuses SARS-CoV-2 (COVID-19) mRNA BNT-162b2 vax 04/25/2021 Recorded SARS-CoV-2 (COVID-19) mRNA BNT-162b2 vax 04/02/2021 Recorded [facility] Evaluation + Plan note 04-12-2024 Note Date & Type Note Facility 04-12-2024 Evaluation + Plan note Diagnostic Tests PendingPAP w/ HPV and Genotype rflx 04/12/24 [facility] Hospital Discharge instructions 01-07-2023 Note Date & Type Note Facility 01-07-2023 Hospital Discharg e instructions Patient Education 01/07/2023 00:03:58 Preventing Hypertension Preventing Hypertension Hypertension, also called high blood pressure, is when the force of blood pumping through the arteries is too strong. Arteries are blood vessels that carry blood from the heart throughout the body. Often, hypertension does not cause symptoms until blood pressure is very high. It is important to have your blood pressure checked regularly. Diet and lifestyle changes can help you prevent hypertension, and they may make you feel better overall and improve your quality of life. If you already have hypertension, you may control it with diet and lifestyle changes, as well as with medicine. How can this condition affect me? Over time, hypertension can damage the arteries and decrease blood flow to important parts of the body, including the brain, heart, and kidneys. By keeping your blood pressure in a healthy range, you can help prevent complications like heart attack, heart failure, stroke, kidney failure, and vascular dementia. What can increase my risk? An unhealthy diet and a lack of physical activity can make you more likely to develop high blood pressure. Some other risk factors include: Age. The risk increases with age. Having family members who have had high blood pressure. Having certain health conditions, such as thyroid problems. Being overweight or obese. Drinking too much alcohol or caffeine. Having too much fat, sugar, calories, or salt (sodium) in your diet. Smoking or using illegal drugs. Taking certain medicines, such as antidepressants, decongestants, control pills, and NSAIDs, such as ibuprofen. What actions can I take to prevent or manage this condition? Work with your health care provider to make a hypertension prevention plan that works for you. You may be referred for counseling on a healthy diet and physical activity. Follow your plan and keep all follow-up visits. Diet changes Maintain a healthy diet. This includes: Eating less salt (sodium). Ask your health care provider how much sodium is safe for you to have. The general recommendation is to have less than 1 tsp (2,300 mg) of sodium a day. ?Do not add salt to your food. ?Choose low-sodium options when grocery shopping and eating out. Limiting fats in your diet. You can do this by eating low-fat or fat-free dairy products and by eating less red meat. Eating more fruits, vegetables, and whole grains. Make a goal to eat: ?1 2 cups of fresh fruits and vegetables each day. ?3 4 servings of whole grains each day. Avoiding foods and beverages that have added sugars. Eating fish that contain healthy fats (omega-3 fatty acids), such as mackerel or salmon. If you need help putting together a healthy eating plan, try the DASH diet. This diet is high in fruits, vegetables, and whole grains. It is low in sodium, red meat, and added sugars. DASH stands for Dietary Approaches to Stop Hypertension. Lifestyle changes Lose weight if you are overweight. Losing just 3 5% of your body weight can help prevent or control hypertension. For example, if your present weight is 200 lb (91 kg), a loss of 3 5% of your weight means losing 6 10 lb (2.7 4.5 kg). Ask your health care provider to help you with a diet and exercise plan to safely lose weight. Get enough exercise. Do at least 150 minutes of moderate-intensity exercise each week. You could do this in short exercise sessions several times a day, or you could do longer exercise sessions a few times a week. For example, you could take a brisk 10-minute walk or bike ride, 3 times a day, for 5 days a week. Find ways to reduce stress, such as exercising, meditating, listening to music, or taking a yoga class. If you need help reducing stress, ask your health care provider. Do not use any products that contain nicotine or tobacco. These products include cigarettes, chewing tobacco, and vaping devices, such as e-cigarettes. Chemicals in tobacco and nicotine products raise your blood pressure each time you use them. If you need help quitting, ask your health care provider. Learn how to check your blood pressure at home. Make sure that you know your personal target blood pressure, as told by your health care provider. Try to sleep 7 9 hours per night. Alcohol use Do not drink alcohol if: ?Your health care provider tells you not to drink. ?You are , may be , or are planning to become . If you drink alcohol: ?Limit how much you have to: ?0 1 drink a day for women. ?0 2 drinks a day for men. ?Know how much alcohol is in your drink. In the [place] one drink equals one 12 oz bottle of beer (355 mL), one 5 oz glass of wine (148 mL), or one 1 oz glass of hard liquor (44 mL). Medicines In addition to diet and lifestyle changes, your health care provider may recommend medicines to help lower your blood pressure. In general: You may need to try a few different medicines to find what works best for you. You may need to take more than one medicine. Take xxlc-qdr-indmrwo and prescription medicines only as told by your health care provider. Questions to ask your health care provider What is my blood pressure goal? How can I lower my risk for high blood pressure? How should I monitor my blood pressure at home? Where to find support Your health care provider can help you prevent hypertension and help you keep your blood pressure at a healthy level. Your local hospital or your community may also provide support services and prevention programs. The [place] [employer] offers an online support network at supportnetwork.heart.org Where to find more information Learn more about hypertension from: National Heart, Lung, and Blood [place]: www.nhlbi.nih.gov Centers for Disease Control and Prevention: www.cdc.gov [place] [employer]: familydoctor.org Learn more about the DASH diet from: National Heart, Lung, and Blood [place]: www.nhlbi.nih.gov Contact a health care provider if: You think you are having a reaction to medicines you have taken. You have recurrent headaches or feel dizzy. You have swelling in your ankles. You have trouble with your vision. Get help right away if: You have sudden, severe chest, back, or abdominal pain or discomfort. You have shortness of breath. You have a sudden, severe headache. These symptoms may be an emergency. Get help right away. Call 911. Do not wait to see if the symptoms will go away. Do not drive yourself to the hospital. Summary Hypertension often does not cause any symptoms until blood pressure is very high. It is important to get your blood pressure checked regularly. Diet and lifestyle changes are important steps in preventing hypertension. By keeping your blood pressure in a healthy range, you may prevent complications like heart attack, heart failure, stroke, and kidney failure. Work with your health care provider to make a hypertension prevention plan that works for you. This information is not intended to replace advice given to you by your health care provider. Make sure you discuss any questions you have with your health care provider. Document Revised: 01/01/2022 Document Reviewed: 01/01/2022 [employer] Patient Education 2022 [employer]. 01/07/2023 00:03:58 Hypertension, Adult, Vcjo-zt-Dmrz Hypertension, Adult Hypertension is another name for high blood pressure. High blood pressure forces your heart to work harder to pump blood. This can cause problems over time. There are two numbers in a blood pressure reading. There is a top number (systolic) over a bottom number (diastolic). It is best to have a blood pressure that is below 120/80. What are the causes? The cause of this condition is not known. Some other conditions can lead to high blood pressure. What increases the risk? Some lifestyle factors can make you more likely to develop high blood pressure: Smoking. Not getting enough exercise or physical activity. Being overweight. Having too much fat, sugar, calories, or salt (sodium) in your diet. Drinking too much alcohol. Other risk factors include: Having any of these conditions: ?Heart disease. ?Diabetes. ? High cholesterol. ?Kidney disease. ?Obstructive sleep apnea. Having a family history of high blood pressure and high cholesterol. Age. The risk increases with age. Stress. What are the signs or symptoms? High blood pressure may not cause symptoms. Very high blood pressure (hypertensive crisis) may cause: Headache. Fast or uneven heartbeats (palpitations). Shortness of breath. Nosebleed. Vomiting or feeling like you may vomit (nauseous). Changes in how you see. Very bad chest pain. Feeling dizzy. Seizures. How is this treated? This condition is treated by making healthy lifestyle changes, such as: ?Eating healthy foods. ?Exercising more. ?Drinking less alcohol. Your doctor may prescribe medicine if lifestyle changes do not help enough and if: ?Your top number is above 130. ?Your bottom number is above 80. Your personal target blood pressure may vary. Follow these instructions at home: Eating and drinking If told, follow the DASH eating plan. To follow this plan: ?Fill one half of your plate at each meal with fruits and vegetables. ?Fill one fourth of your plate at each meal with whole grains. Whole grains include whole-wheat pasta, brown rice, and whole-grain bread. ?Eat or drink low-fat dairy products, such as skim milk or low-fat yogurt. ?Fill one fourth of your plate at each meal with low-fat (lean) proteins. Low-fat proteins include fish, chicken without skin, eggs, beans, and tofu. ?Avoid fatty meat, cured and processed meat, or chicken with skin. ?Avoid pre-made or processed food. Limit the amount of salt in your diet to less than 1,500 mg each day. Do not drink alcohol if: ?Your doctor tells you not to drink. ?You are , may be , or are planning to become . If you drink alcohol: ?Limit how much you have to: ?0 1 drink a day for women. ?0 2 drinks a day for men. ?Know how much alcohol is in your drink. In the [place] one drink equals one 12 oz bottle of beer (355 mL), one 5 oz glass of wine (148 mL), or one 1 oz glass of hard liquor (44 mL). Lifestyle Work with your doctor to stay at a healthy weight or to lose weight. Ask your doctor what the best weight is for you. Get at least 30 minutes of exercise that causes your heart to beat faster (aerobic exercise) most days of the week. This may include walking, swimming, or biking. Get at least 30 minutes of exercise that strengthens your muscles (resistance exercise) at least 3 days a week. This may include lifting weights or doing Pilates. Do not smoke or use any products that contain nicotine or tobacco. If you need help quitting, ask your doctor. Check your blood pressure at home as told by your doctor. Keep all follow-up visits. Medicines Take krte-ecd-qmbmwfb and prescription medicines only as told by your doctor. Follow directions carefully. Do not skip doses of blood pressure medicine. The medicine does not work as well if you skip doses. Skipping doses also puts you at risk for problems. Ask your doctor about side effects or reactions to medicines that you should watch for. Contact a doctor if: You think you are having a reaction to the medicine you are taking. You have headaches that keep coming back. You feel dizzy. You have swelling in your ankles. You have trouble with your vision. Get help right away if: You get a very bad headache. You start to feel mixed up (confused). You feel weak or numb. You feel faint. You have very bad pain in your: ?Chest. ?Belly (abdomen). You vomit more than once. You have trouble breathing. These symptoms may be an emergency. Get help right away. Call 911. Do not wait to see if the symptoms will go away. Do not drive yourself to the hospital. Summary Hypertension is another name for high blood pressure. High blood pressure forces your heart to work harder to pump blood. For most people, a normal blood pressure is less than 120/80. Making healthy choices can help lower blood pressure. If your blood pressure does not get lower with healthy choices, you may need to take medicine. This information is not intended to replace advice given to you by your health care provider. Make sure you discuss any questions you have with your health care provider. Document Revised: 01/01/2022 Document Reviewed: 01/01/2022 [employer] Patient Education 2022 [employer]. Follow Up Care 01/06/2023 20:08:08 With:Dakota Jeffery Address: [address] [place] [address] Business (2) When:01/09/2023 Comments:Follow-up with your primary care provider in 3 to 5 days. If symptoms worsen, do not improve, or new symptoms arise please report back to emergency department for further evaluation. [facility] Evaluation + Plan note 01-06-2023 Note Date & Type Note Facility 01-06-2023 Evaluation + Plan note Extrac sinan from: Title:ED Note Author:Ziggy CABRAL, Wilbert Peralta te:01/06/23 Asymptomatic hypertension (I 10: Essential (primary) hypertension) Future Appointments Appointment Date:01/08/2023 09:20:00 AM Scheduled Provider:Rona Winkler Location:[facility] Appointment Type:[facility] Clinical Note 04-01-2022 Note Date & Type Note Facility 04-01-2022 Note OPERATIVE NOTE OPERATION DATE: 04/01/2022 PREOPERATIVE DIAGNOSIS: Colorectal screening. POSTOPERATIVE DIAGNOSIS: Normal colonoscopy to cecum. PROCEDURE: Colonoscopy to cecum. SURGEON: Deborah Amado M.D. ANESTHESIA: Monitored anesthesia care. ESTIMATED BLOOD LOSS: Zero. INDICATIONS AND CONSENT: Patient is a 57-year-old female who presents for colorectal screening. Indications, risks, benefits, alternatives of proceeding with colonoscopy were explained extensively to the patient, including the risks of bleeding, colon perforation or anesthetic complications. All of her questions were answered. Informed consent was obtained. PROCEDURE: Patient brought to the operating room, placed in the left lateral decubitus position. Monitored anesthesia care was provided. Rectal exam was performed which showed no masses or blood. The scope was inserted into the anal canal. Under direct visualization was advanced. With the aid of abdominal compression, it was advanced to the cecum where cecal markings were clearly identified. There was noted to be a good prep. Upon withdrawal of the scope, mucosal surfaces were carefully examined. There were no mass lesions or polyps. No inflammatory changes or ulcerations. No significant diverticulosis. The scope was retroflexed in the anal canal. There was no significant hemorrhoidal disease. The scope was then withdrawn. Patient tolerated procedure well, was sent to recovery room in good condition. CC: Tonia Longoria M.D. [facility] Evaluation + Plan note Note Date & Type Note Facility Evaluation + Plan note Future Appointments Appointment Date:02/03/2023 08:40:00 AM Scheduled Provider:Rona Winkler Location:[facility] Appointment Type:[facility] Evaluation + Plan note Note Date & Type Note Facility Evaluation + Plan note Future Appointments Appointment Date:04/12/2024 02:40:00 PM Scheduled Provider:Rona Winkler Location:[facility] Appointment Type:[facility] Hospital course Narrative Note Date & Type Note Facility Hospital course Narrative No data available for this section [facility] Hospital Discharge instructions Note Date & Type Note Facility Hospital Discharge instructions No data available for this section [facility] Progress note Note Date & Type Note Facility Progress note No data available for this section [facility] Summary Purpose Family History No Family History Records FoundNo Family History Records FoundNo Family History Records Found No data available for this section No data available for this section No data available for this section No Family History Records FoundNo Family History Records FoundNo Family History Records FoundNo Family History Records FoundNo Family History Records Found No data available for this section No Family History Records FoundNo Family History Records Found No data available for this section No Family History Records FoundNo Family History Records FoundNo Family History Records FoundNo Family History Records FoundNo Family History Records FoundNo Family History Records Found Advance Directives No Advanced Directives Records FoundNo Advanced Directives Records FoundNo Advanced Directives Records FoundNo Advanced Directives Records FoundNo Advanced Directives Records FoundNo Advanced Directives Records FoundNo Advanced Directives Records FoundNo Advanced Directives Records FoundNo Advanced Directives Records FoundNo Advanced Directives Records FoundNo Advanced Directives Records FoundNo Advanced Directives Records FoundNo Advanced Directives Records FoundNo Advanced Directives Records FoundNo Advanced Directives Records FoundNo Advanced Directives Records Found Additional Source Comments INFORMATION SOURCE (unrecogn ized section and content) DATE CREATED AUTHOR 09/22/2017 [facility] DATE CREATED AUTHOR AUTHOR'S ORGANIZ ATION 01/11/2020 [facility] DATE CREATED AUTHOR AUTHOR'S ORGANIZ ATION 08/10/2022 [facility] DATE CREATED AUTHOR AUTHOR'S ORGANIZ ATION 03/01/2024 [facility] DATE CREATED AUTHOR AUTHOR'S ORGANIZ ATION 04/13/2024 [facility] DATE CREATED AUTHOR AUTHOR'S ORGANIZ ATION 04/20/2024 [facility] DATE CREATED AUTHOR AUTHOR'S ORGANIZ ATION 04/21/2024 [facility] DATE CREATED AUTHOR AUTHOR'S ORGANIZ ATION 04/28/2024 [facility] Patient Care team informatio n (unrecognized section and content) Personnel Name: Dakota Jeffery MD Address: Address: [address] [place] [address] Personnel Name: Dakota Jeffery MD Address: Address: [address] [place] [address] Personnel Name: Rona Winkler Address: Address: [address] [place] [address]- Personnel Name: Rona Winkler Address: Address: [address] [place], [place] [id number]- Personnel Name: Rona Winkler Address: Address: [address] [place] [address]- FOR RECORDS PERTAINING TO PATIENTS WHO ARE OR HAVE BEEN ENROLLED IN A CHEMICAL DEPENDENCY/SUBSTANCEABUSE PROGRAM, SOME INFORMATION MAY BE OMITTED. This clinical summary was aggregated from multiple sources. Caution should be exercised in using it in the provision of clinical care. This summary normalizes information from multiple sources, and as a consequence, information in this document may materially change the coding, format and clinical context of patient data. In addition, data may be omitted in some cases. CLINICAL DECISIONS SHOULD BE BASED ON THE PRIMARY CLINICAL RECORDS. [facility] provides no warranty or guarantee of the accuracy or completeness of information in this document.
== END 2024-05-31 07:45 | disposition home or self-care (01) ==
LOC: MAMMO 07:45
PROVIDERS: PCP Nurse Practitioner; Visit Provider Nurse Practitioner
DX: Z12.31 Encounter for screening mammogram for malignant neoplasm of breast (principal); R92.0 Mammographic microcalcification found on diagnostic imaging of breast
CPT/HCPCS: 77063; 77067

== ENCOUNTER 2024-09-19 09:00 | Outpatient (OUT) | payer OTHER, SELFPAY ==
--- OUTSIDE RECORDS SUMMARY | 2024-09-19 09:04 | XMS_ITS | Clinical Summary ---
Author Organization [facility] Address [id number] [address] [place] [address] Care Team Providers Care Clinical Aide Name Role Phone Tonia Longoria MD Primary Care Provider [phone] Allergies No known active allergies Medications HUMIRA PEN 40 mg/0.8 mL pen injector kit 40 mg by infiltration route every 30 (thirty) days. 2 Active methotrexate 2.5 mg chemo tablet Take 2.5 mg by mouth once a week Six tablets once a week 2 Active hydrOXYchloroQU INE (PLAQUENIL) 200 mg tablet Take 200 mg by mouth in the morning. Active folic acid (FOLVITE) 1 mg tablet Take 1 mg by mouth in the morning. Active multivitamin capsule Take 1 capsule by mouth in the morning. One a day Womens. Active UNABLE TO FIND Take by mouth daily. Calcium chewable tablet Active Active Problems No known active problems Family History Medical History Relation Name Comments No Known Problems Father COPD Mother Relation Name Status Comments Father Mother Sister 1 Alive Sister 2 Alive Sister 3 Alive Social History Tobacco Use Types Packs/Day Years Used Date Smoking Tobacco: Never Smokeless Tobacco: Never Alcohol Use Standard Drinks/Week Comments Yes 0 (1 standard drink = 0.6 oz pur e alcohol) socially Comments Unknown Sex and Gender Information Value Date Recorded Sex Assigned at Not on file Legal Sex Female 1:07 PM EDT Gender Identity Not on file Sexual Orientation Not on file Last Filed Vital Signs Vital Sign Reading Time Taken Comments Blood Pressure 134/90 10/01/2021 3:07 PM EDT Pulse 81 09/18/2021 3:04 PM EDT Temperature 36.6 C (97.8 F) 10/01/2021 3:07 PM EDT Respiratory Rate 18 09/18/2021 3:04 PM EDT Oxygen Saturation 99% 09/18/2021 3:04 PM EDT Inhaled Oxygen Concentration - - Weight 93.9 kg (207 lb) 10/01/2021 3:07 PM EDT Height 170.2 cm (5' 7 ) 10/01/2021 3:07 PM EDT Body Mass Index 32.42 10/01/2021 3:07 PM EDT Plan of Treatment Health Maintenance Due Date Last Done Comments Depression Screening 1976 Tobacco Screening 1976 DTaP,Tdap and Td Vaccines (1 - Tdap) 1983 Pap Smear 1985 Zoster (Shingles) Vaccine (1 of 2) 2014 Adult BMI Screening 10/01/2022 10/01/2021 COVID-19 Vaccine ( season) 2023, 04/02/2021 Influenza Vaccine 11/27/2024 Medical Devices Not on file Insurance [employer] Care Teams Clinical Aide Relationship Specialty Start Date End Date Tonia Longoria MD PCP - General Family Medicine 09/10/21
--- OUTSIDE RECORDS SUMMARY | 2024-09-19 09:04 | XMS_ITS | Clinical Summary ---
Author Organization [facility] Address [address] [place] [address] Care Team Providers Care Director Of Fundraising Name Role Phone DamarisRona wilson [employer]ATOR Primary Care Provider [phone] Allergies No known active allergies Medications folic acid (FOLVITE) 1 MG tablet Take 1 tablet by mouth daily Active methotrexate (RHEUMATREX) 2.5 MG chemo tablet Take 6 tablets by mouth once a week Patient takes 2.5mg tab 6 tabs weekly. Last dose taken 07/16/24 Active hydroxychloroqu ine (PLAQUENIL) 200 MG tablet Take 1 tablet by mouth daily Active Metoprolol Tartrate 37.5 MG TABS Take 37.5 mg by mouth in the morning and 37.5 mg in the evening. Active Encounters Date Type Department Care Team Description 07/26/2024 12:31 PM EDT - 07/28/2024 11:59 PM EDT Hospital Encounter [address] [address] Discharge Disposition: Home or Self Care 07/26/2024 12:31 PM EDT - 07/28/2024 11:59 PM EDT Hospital Encounter [address] [address] Discharge Disposition: Home or Self Care 07/26/2024 12:25 PM EDT - 07/28/2024 11:59 PM EDT Hospital Encounter [address] [address] Mammographic microcalcification Discharge Disposition: Home or Self Care 07/20/2024 Transcribe Orders [place] [address] [place] [address] Abdulaziz Amado MD Mammographic microcalcification (Primary Dx) from Last 3 Months Social History Tobacco Use Types Packs/Day Years Used Date Smoking Tobacco: Never Assessed Comments Unknown Sex and Gender Information Value Date Recorded Sex Assigned at Not on file Legal Sex Female 8:15 AM EDT Gender Identity Not on file Sexual Orientation Not on file Last Filed Vital Signs Vital Sign Reading Time Taken Comments Blood Pressure 147/88 07/26/2024 2:05 PM EDT Pulse 85 07/26/2024 2:05 PM EDT Temperature - - Respiratory Rate 20 07/26/2024 2:05 PM EDT Oxygen Saturation - - Inhaled Oxygen Concentration - - Weight - - Height - - Body Mass Index - - Plan of Treatment Health Maintenance Due Date Last Done Comments Depression Screen 1976 HIV screen 1979 Hepatitis C screen 1982 DTaP/Tdap/Td vaccine (1 - Tdap) 1983 Pap smear 1985 Cervical cancer screen 1994 HPV (without or with Pap) 1994 Breast cancer screen 2004 Lipids 2004 Colonoscopy 2009 Colorectal Cancer Screen 2009 FIT/FOBT: Average risk 2009 Fecal-DNA (Cologuard): [place] ge risk 2009 Sigmoidoscopy/CT colonography 2009 Pneumococcal 50+ years Vacci ne (1 of 1 - PCV) 2014 Shingles vaccine (1 of 2) 2014 COVID-19 Vaccine (3 - 2023-2 5 season) 2023 04/25/2021, 04/02/2021 Flu vaccine (Season Ended) 2024 Respiratory Syncytial Virus (RSV) or age 60 yrs+ (1 - 1-dose 75+ series) 2039 Hepatitis A vaccine Aged Out No longe r eligible based on patient's age to complete this topic Hepatitis B vaccine Aged Out No longe r eligible based on patient's age to complete this topic Hib vaccine Aged Out No longer eligi ble based on patient's age to complete this topic Meningococcal (ACWY) vaccine Aged Out No longer eligible based on patient's age to complete this topic Meningococcal B vaccine Aged Out No l onger eligible based on patient's age to complete this topic Polio vaccine Aged Out No longer elig ible based on patient's age to complete this topic Procedures Procedure Name Priority Date/Time Associated Diagnosis Comments ELIZABETH STEREO BREAST BX W LOC DEVICE 1ST LESION RIGHT Routine 07/26/2024 3:03 PM EDT Mammographic microcalcification ELIZABETH BREAST SPECIMEN Routine 07/26/2024 2:26 PM EDT MAMMOGRAM POST BX CLIP PLACEMENT RIGHT Routine 07/26/2024 2:25 PM EDT SURGICAL PATHOLOGY Routine 07/26/2024 12:00 AM EDT from Last 3 Months Results * ELIZABETH STEREO BREAST BX W LOC DEVICE 1ST LESION RIGHT (07/26/2024 3:03 PM EDT) Anatomical Region Laterality Modality Breast Right Mammography 07/27/2024 8:21 AM EDT Addenda Addendum by Kartik Pope MD on 08/07/2024 8:53 AM EDT ADDENDUM: Pathology results: Fibroadenomatoid changes and microcalcifications. This is concordant. Close surveillance recommended Performing Facility: [place] [id number] Impressions 07/27/2024 8:23 AM EDT Technically successful stereotactic biopsy of the right breast calcifications and top hat clip marker placement as described above. BIRADS: ZW - Pathology pending. Narrative 07/27/2024 8:23 AM EDT EXAMINATION: STEREOTACTIC RIGHT BREAST BIOPSY WITH VACUUM-ASSIST STEREOTACTIC MARKER PLACEMENT SPECIMEN RADIOGRAPH POSTPROCEDURE UNILATERAL DIGITAL MAMMOGRAM FOR MARKER PLACEMENT 07/26/2024 HISTORY: ORDERING SYSTEM PROVIDED HISTORY: Mammographic microcalcification; ORDERING SYSTEM PROVIDED HISTORY: abnormal right mammogram TECHNOLOGIST PROVIDED HISTORY: Reason for exam:->abnormal right mammogram COMPARISON: June 21 PROCEDURE: A timeout was performed to confirm patient identification and site of procedure. Risks, benefits, and alternatives of the procedure were discussed. Informed written consent was obtained. The biopsy site was prepped and draped in the standard fashion and 1% lidocaine was used for local anesthesia. Using a mediolateral approach, a 9 gauge needle was positioned under stereotactic guidance. A small skin incision was made and the needle was advanced to the targeted site. An additional 0.25% bupivacaine was administered for deep anesthesia. Several core samples were obtained. The needle was adjusted and more samples were taken after the 1st specimen radiograph. FINDINGS: MARKER PLACEMENT: Following tissue sampling, a top hat clip was placed at the biopsy site. The stereotactic needle was removed and pressure applied for hemostasis. The patient tolerated the procedure well with no immediate complications. SPECIMEN RADIOGRAPH: A specimen radiograph was performed showing calcifications in several of the core samples. POST-PROCEDURE MAMMOGRAM FOR MARKER PLACEMENT: ML and CC views of the right breast were obtained immediately following the procedure. The biopsy clip is in the correct location with respect to the targeted site. There is no evidence of biopsy clip migration from the biopsy site. Post biopsy clip placement imaging performed in a separate room. Procedure Note Kartik Pope MD - 08/07/2024 EXAMINATION: STEREOTACTIC RIGHT BREAST BIOPSY WITH VACUUM-ASSIST STEREOTACTIC MARKER PLACEMENT SPECIMEN RADIOGRAPH POSTPROCEDURE UNILATERAL DIGITAL MAMMOGRAM FOR MARKER PLACEMENT 07/26/2024 HISTORY: ORDERING SYSTEM PROVIDED HISTORY: Mammographic microcalcification;ORDERING SYSTEM PROVIDED HISTORY: abnormal right mammogram TECHNOLOGIST PROVIDED HISTORY: Reason for exam:->abnormal right mammogram COMPARISON: June 21 PROCEDURE: A timeout was performed to confirm patient identification and site of procedure. Risks, benefits, and alternatives of the procedure werediscussed. Informed written consent was obtained. The biopsy site was prepped and draped in the standard fashion and 1% lidocaine was used for local anesthesia. Using a mediolateral approach, a9 gauge needle was positioned under stereotactic guidance. A small skin incision was made and the needle was advanced to the targeted site. An additional 0.25% bupivacaine was administered for deep anesthesia.Several core samples were obtained. The needle was adjusted and more sampleswere taken after the 1st specimen radiograph. FINDINGS: MARKER PLACEMENT: Following tissue sampling, a top hat clip was placed at the biopsy site.The stereotactic needle was removed and pressure applied for hemostasis. The patient tolerated the procedure well with no immediatecomplications. SPECIMEN RADIOGRAPH: A specimen radiograph was performed showing calcifications in several ofthe core samples. POST-PROCEDURE MAMMOGRAM FOR MARKER PLACEMENT: ML and CC views of the right breast were obtained immediately followingthe procedure. The biopsy clip is in the correct location with respect tothe targeted site. There is no evidence of biopsy clip migration from thebiopsy site. Post biopsy clip placement imaging performed in a separate room. IMPRESSION: Technically successful stereotactic biopsy of the right breastcalcifications and top hat clip marker placement as described above. BIRADS: ZW - Pathology pending. Abdulaziz Amado MD IMG MAMMOGRAPHY ORDERABLES Edite d Result - Final * ELIZABETH BREAST SPECIMEN (07/26/2024 2:26 PM EDT) Anatomical Region Laterality Modality Breast N/A Mammography 07/27/2024 8:21 AM EDT Addenda Addendum by Kartik Pope MD on 08/07/2024 8:53 AM EDT ADDENDUM: Pathology results: Fibroadenomatoid changes and microcalcifications. This is concordant. Close surveillance recommended Performing Facility: [facility], [place] [address] Impressions 07/27/2024 8:23 AM EDT Technically successful stereotactic biopsy of the right breast calcifications and top hat clip marker placement as described above. BIRADS: ZW - Pathology pending. Narrative 07/27/2024 8:23 AM EDT EXAMINATION: STEREOTACTIC RIGHT BREAST BIOPSY WITH VACUUM-ASSIST STEREOTACTIC MARKER PLACEMENT SPECIMEN RADIOGRAPH POSTPROCEDURE UNILATERAL DIGITAL MAMMOGRAM FOR MARKER PLACEMENT 07/26/2024 HISTORY: ORDERING SYSTEM PROVIDED HISTORY: Mammographic microcalcification; ORDERING SYSTEM PROVIDED HISTORY: abnormal right mammogram TECHNOLOGIST PROVIDED HISTORY: Reason for exam:->abnormal right mammogram COMPARISON: June 21 PROCEDURE: A timeout was performed to confirm patient identification and site of procedure. Risks, benefits, and alternatives of the procedure were discussed. Informed written consent was obtained. The biopsy site was prepped and draped in the standard fashion and 1% lidocaine was used for local anesthesia. Using a mediolateral approach, a 9 gauge needle was positioned under stereotactic guidance. A small skin incision was made and the needle was advanced to the targeted site. An additional 0.25% bupivacaine was administered for deep anesthesia. Several core samples were obtained. The needle was adjusted and more samples were taken after the 1st specimen radiograph. FINDINGS: MARKER PLACEMENT: Following tissue sampling, a top hat clip was placed at the biopsy site. The stereotactic needle was removed and pressure applied for hemostasis. The patient tolerated the procedure well with no immediate complications. SPECIMEN RADIOGRAPH: A specimen radiograph was performed showing calcifications in several of the core samples. POST-PROCEDURE MAMMOGRAM FOR MARKER PLACEMENT: ML and CC views of the right breast were obtained immediately following the procedure. The biopsy clip is in the correct location with respect to the targeted site. There is no evidence of biopsy clip migration from the biopsy site. Post biopsy clip placement imaging performed in a separate room. Procedure Note Kartik Pope MD - 08/07/2024 EXAMINATION: STEREOTACTIC RIGHT BREAST BIOPSY WITH VACUUM-ASSIST STEREOTACTIC MARKER PLACEMENT SPECIMEN RADIOGRAPH POSTPROCEDURE UNILATERAL DIGITAL MAMMOGRAM FOR MARKER PLACEMENT 07/26/2024 HISTORY: ORDERING SYSTEM PROVIDED HISTORY: Mammographic microcalcification;ORDERING SYSTEM PROVIDED HISTORY: abnormal right mammogram TECHNOLOGIST PROVIDED HISTORY: Reason for exam:->abnormal right mammogram COMPARISON: June 21 PROCEDURE: A timeout was performed to confirm patient identification and site of procedure. Risks, benefits, and alternatives of the procedure werediscussed. Informed written consent was obtained. The biopsy site was prepped and draped in the standard fashion and 1% lidocaine was used for local anesthesia. Using a mediolateral approach, a9 gauge needle was positioned under stereotactic guidance. A small skin incision was made and the needle was advanced to the targeted site. An additional 0.25% bupivacaine was administered for deep anesthesia.Several core samples were obtained. The needle was adjusted and more sampleswere taken after the 1st specimen radiograph. FINDINGS: MARKER PLACEMENT: Following tissue sampling, a top hat clip was placed at the biopsy site.The stereotactic needle was removed and pressure applied for hemostasis. The patient tolerated the procedure well with no immediatecomplications. SPECIMEN RADIOGRAPH: A specimen radiograph was performed showing calcifications in several ofthe core samples. POST-PROCEDURE MAMMOGRAM FOR MARKER PLACEMENT: ML and CC views of the right breast were obtained immediately followingthe procedure. The biopsy clip is in the correct location with respect tothe targeted site. There is no evidence of biopsy clip migration from thebiopsy site. Post biopsy clip placement imaging performed in a separate room. IMPRESSION: Technically successful stereotactic biopsy of the right breastcalcifications and top hat clip marker placement as described above. BIRADS: ZW - Pathology pending. Kartik Pope MD IMG MAMMOGRAPHY ORDERABLES Edit ed Result - Final * ELIZABETH POST BX CLIP PLACEMENT RIGHT (07/26/2024 2:25 PM EDT) Anatomical Region Laterality Modality Breast Right Mammography 07/27/2024 8:21 AM EDT Addenda Addendum by Kartik Pope MD on 08/07/2024 8:53 AM EDT ADDENDUM: Pathology results: Fibroadenomatoid changes and microcalcifications. This is concordant. Close surveillance recommended Performing Facility: [place] [address] Impressions 07/27/2024 8:23 AM EDT Technically successful stereotactic biopsy of the right breast calcifications and top hat clip marker placement as described above. BIRADS: ZW - Pathology pending. Narrative 07/27/2024 8:23 AM EDT EXAMINATION: STEREOTACTIC RIGHT BREAST BIOPSY WITH VACUUM-ASSIST STEREOTACTIC MARKER PLACEMENT SPECIMEN RADIOGRAPH POSTPROCEDURE UNILATERAL DIGITAL MAMMOGRAM FOR MARKER PLACEMENT 07/26/2024 HISTORY: ORDERING SYSTEM PROVIDED HISTORY: Mammographic microcalcification; ORDERING SYSTEM PROVIDED HISTORY: abnormal right mammogram TECHNOLOGIST PROVIDED HISTORY: Reason for exam:->abnormal right mammogram COMPARISON: June 21 PROCEDURE: A timeout was performed to confirm patient identification and site of procedure. Risks, benefits, and alternatives of the procedure were discussed. Informed written consent was obtained. The biopsy site was prepped and draped in the standard fashion and 1% lidocaine was used for local anesthesia. Using a mediolateral approach, a 9 gauge needle was positioned under stereotactic guidance. A small skin incision was made and the needle was advanced to the targeted site. An additional 0.25% bupivacaine was administered for deep anesthesia. Several core samples were obtained. The needle was adjusted and more samples were taken after the 1st specimen radiograph. FINDINGS: MARKER PLACEMENT: Following tissue sampling, a top hat clip was placed at the biopsy site. The stereotactic needle was removed and pressure applied for hemostasis. The patient tolerated the procedure well with no immediate complications. SPECIMEN RADIOGRAPH: A specimen radiograph was performed showing calcifications in several of the core samples. POST-PROCEDURE MAMMOGRAM FOR MARKER PLACEMENT: ML and CC views of the right breast were obtained immediately following the procedure. The biopsy clip is in the correct location with respect to the targeted site. There is no evidence of biopsy clip migration from the biopsy site. Post biopsy clip placement imaging performed in a separate room. Procedure Note Kartik Pope MD - 08/07/2024 EXAMINATION: STEREOTACTIC RIGHT BREAST BIOPSY WITH VACUUM-ASSIST STEREOTACTIC MARKER PLACEMENT SPECIMEN RADIOGRAPH POSTPROCEDURE UNILATERAL DIGITAL MAMMOGRAM FOR MARKER PLACEMENT 07/26/2024 HISTORY: ORDERING SYSTEM PROVIDED HISTORY: Mammographic microcalcification;ORDERING SYSTEM PROVIDED HISTORY: abnormal right mammogram TECHNOLOGIST PROVIDED HISTORY: Reason for exam:->abnormal right mammogram COMPARISON: June 21 PROCEDURE: A timeout was performed to confirm patient identification and site of procedure. Risks, benefits, and alternatives of the procedure werediscussed. Informed written consent was obtained. The biopsy site was prepped and draped in the standard fashion and 1% lidocaine was used for local anesthesia. Using a mediolateral approach, a9 gauge needle was positioned under stereotactic guidance. A small skin incision was made and the needle was advanced to the targeted site. An additional 0.25% bupivacaine was administered for deep anesthesia.Several core samples were obtained. The needle was adjusted and more sampleswere taken after the 1st specimen radiograph. FINDINGS: MARKER PLACEMENT: Following tissue sampling, a top hat clip was placed at the biopsy site.The stereotactic needle was removed and pressure applied for hemostasis. The patient tolerated the procedure well with no immediatecomplications. SPECIMEN RADIOGRAPH: A specimen radiograph was performed showing calcifications in several ofthe core samples. POST-PROCEDURE MAMMOGRAM FOR MARKER PLACEMENT: ML and CC views of the right breast were obtained immediately followingthe procedure. The biopsy clip is in the correct location with respect tothe targeted site. There is no evidence of biopsy clip migration from thebiopsy site. Post biopsy clip placement imaging performed in a separate room. IMPRESSION: Technically successful stereotactic biopsy of the right breastcalcifications and top hat clip marker placement as described above. BIRADS: ZW - Pathology pending. Kartik Pope MD IMG MAMMOGRAPHY ORDERABLES Edit ed Result - Final * Surgical Pathology (07/26/2024 12:00 AM EDT) 07/26/2024 07/26/2024 2:0 6 PM EDT Narrative [facility] - 07/27/2024 1:46 PM EDT [facility] [address] [place] [address] FINAL SURGICAL PATHOLOGY REPORT Patient Name: CYN LERMA Accession No: [id number] Age Sex: 1965 Location: [facility] Account No: [id number] Collected: 07/26/2024 [facility] Rec No: [id number] Received: 07/26/2024 Attend Phys: Completed: 07/27/2024 Perform Phys: ABDULAZIZ AMADO FINAL DIAGNOSIS: RIGHT BREAST CORE BIOPSY: FIBROADENOMATOID CHANGES MICROCALCIFICATIONS DANIALMO/DANGELO CLINICAL INFORMATION: Clinical data: Suspicious group calcifications within lower inner quadrant right breast at mid to posterior depth. Operation: Stereotactic percutaneous biopsy of right breast. SPECIMEN: Right Breast Core Biopsy GROSS DESCRIPTION: Received is a GridView container labeled Mary Jane Lerma and designated right breast . The specimen is received fresh and placed in formalin in the laboratory. The specimen is accompanied by a radiographic report Calcifications in specimen at E2, F2, E4, D/E4 . The specimen consists of several yellow tissue cores. The specimen is 3 x 2 x 0.2 cm in aggregate. The specimen is submitted in toto in two cassettes. DANGELO/DANIALMO CPT: 21357 X1 Michelle NAM M.D. 07/27/2024 Electronically signed out by Page 1 of 1 Abdulaziz Amado MD PATHOLOGY/CYTOLOGY ORDERABLES Fi nal Result [facility] [address] [place] [address], [facility] [phone] from Last 3 Months Insurance [employer] Care Teams Director Of Fundraising Relationship Specialty Start Date End Date Rona Ocampo APRN - NP [address] [place] [address] PCP - General 07/20/24
--- NOTE | 2024-09-19 09:06 | XR_ITS ---
The [address] [address] Patient Name: MADINA LERAM MRN: [id number] date: 1965 Sex: F Assigned Patient Location: [facility] Current Patient Location: [facility] Accession/Order Number: [id number] Exam Date: 09/19/2024 11:44 Report Date: 09/19/2024 11:45 At the request of: DANIELLA CAMPOS NP Procedure: XR chest 2V PA AND LATERAL CHEST: CLINICAL HISTORY: Rheumatoid Arthritis, Immunosuppression COMPARISON: 05/31/2019 There is no focal parenchymal consolidation, effusion or pneumothorax. The cardiac, hilar and mediastinal silhouettes are within normal limits. There is no vascular congestion. The visualized bony thorax is intact. End plate spurring is present at the spine. XR/XR chest 2V IMPRESSION: NO ACUTE CARDIOPULMONARY ABNORMALITY. Impression dictated by: Lindsey Breaux M.D. 09/19/2024 11:45 AM Dictation Location: [place] [address] Electronically authenticated by: [id number] Y Date: 09/19/2024 11:45
== END 2024-09-19 09:01 | disposition home or self-care (01) ==
LOC: RAD 09:02
PROVIDERS: PCP Nurse Practitioner; Visit Provider Nurse Practitioner Family
DX: M06.9 Rheumatoid arthritis, unspecified (principal); D84.9 Immunodeficiency, unspecified
CPT/HCPCS: 71046